=== PATIENT | female | born 1995 | race Caucasian/White ===

== ENCOUNTER 2018-06-10 15:58 | Emergency (ER) | payer SELFPAY ==
[2018-06-10 17:54] LABS: Urine Blood TRACE (NEG); Urine Glucose NEGATIVE (NEG); Urine Protein TRACE (NEG)
--- NOTE | 2018-06-10 17:59 | ER ---
Nurse's Notes [facility] Name: Shalini Yates Age: 22 yrs Sex: Female : 1995 Arrival Date: 06/10/2018 Time: 16:00 Bed 13 Private MD: None, None Diagnosis: Candidiasis of vulva and vagina Presentation: 06/10 16:38 Presenting complaint: Patient states: "I have a yeast infection. I've had it for a week aj1 and it isn't getting better." Patient reports that she has tried taking OTC Monostat, but her symptoms aren't getting any better. Reports vaginal burning and itching, reports she has had yeast infections before and this is what they felt like. Denies vaginal discharge. Transition of care: patient was not received from another setting of care. Onset of symptoms was June 03, 2018. Risk Assessment: Do you want to hurt yourself or someone else? Patient reports no desire to harm self or others. Initial Sepsis Screen: Does the patient meet any 2 criteria? No. Patient's initial sepsis screen is negative. Does the patient have a suspected source of infection? No. Patient's initial sepsis screen is negative. Care prior to arrival: None. 16:38 Method Of Arrival: Ambulatory aj1 16:38 Acuity: BERNARDA 4 aj1 Triage Assessment: 16:40 General: Appears in no apparent distress. comfortable, Behavior is calm, cooperative, aj1 appropriate for age. Pain: Complains of pain in pelvis Pain currently is 3 out of 10 on a pain scale. Quality of pain is described as burning, Pain began one week ago. Neuro: Level of Consciousness is awake, alert, obeys commands. Cardiovascular: Patient's skin is warm and dry. Respiratory: Airway is patent Respiratory effort is even, unlabored, Respiratory pattern is regular, symmetrical. : Reports vaginal burning and itching. MANAGER STYLE: 16:40 LMP N/A - Irregular menses aj1 Historical: - Allergies: 16:40 No Known Allergies; aj1 - Home Meds: 16:40 None [Active]; aj1 - PMHx: 16:40 None; aj1 - PSHx: 16:40 None; aj1 - Immunization history:: Flu vaccine is not up to date. - Social history:: Smoking status: Patient uses tobacco products, a couple cigarettes per day. - Ebola Screening: : Patient denies travel to an Ebola-affected area in the 21 days before illness onset. Screenin:45 Abuse screen: Denies threats or abuse. Denies injuries from another. Nutritional ph screening: No deficits noted. Tuberculosis screening: No symptoms or risk factors identified. Fall Risk None identified. Assessment: 17:45 General: Appears in no apparent distress. uncomfortable, well groomed, Behavior is ph calm, cooperative, appropriate for age, Denies fever. Pain: Complains of pain in groin Quality of pain is described as burning. Neuro: Level of Consciousness is awake, alert, obeys commands, Oriented to person, place, time, situation. Cardiovascular: Capillary refill < 3 seconds in bilateral fingers Patient's skin is warm and dry. Respiratory: Airway is patent Respiratory effort is even, unlabored, Respiratory pattern is regular, symmetrical. GI: No signs and/or symptoms were reported involving the gastrointestinal system. Patient currently denies diarrhea, nausea, vomiting. : Reports discharge, from vagina that is white, vaginal itching, Denies burning with urination, vaginal bleeding. Derm: Skin is intact, is healthy with good turgor, Skin is pink, warm \\T\\ dry. Musculoskeletal: Circulation, motion, and sensation intact. Range of motion: intact in all extremities. Vital Signs: 16:40 BP 125 / 90; Pulse 90; Resp 18; Temp 97.4; Pulse Ox 97% on R/A; Height 5 ft. 0 in. aj1 (152.40 cm); Pain 3/10; 18:30 BP 118 / 82; Pulse 84; Resp 18; Temp 97.8; Pulse Ox 99% on R/A; ph ED Course: 16:00 Patient arrived in ED. sb2 16:00 None, None is Private Physician. sb2 16:39 Triage completed. aj1 16:40 Arm band placed on Patient placed in waiting room, Patient notified of wait time. aj1 17:40 Jess Perry FNP-C [facility]. snw 17:40 Josep Summers MD is Attending Physician. snw 17:40 Danica Krishnamurthy RN is Primary Nurse. ph 17:45 Patient has correct armband on for positive identification. Bed in low position. Call light in reach. Side rails up X 1. 18:45 No provider procedures requiring assistance completed. Patient did not have IV access ph during this emergency room visit. Administered Medications: 18:25 Drug: DiFLUcan 150 mg Route: PO; ph 18:45 Follow up: Response: No adverse reaction ph Outcome: 17:58 Discharge ordered by MD. sands 18:46 Patient left the ED. ph 18:46 Discharged to home ambulatory, with friend. ph 18:46 Condition: good 18:46 Discharge instructions given to patient, Instructed on discharge instructions, follow up and referral plans. medication usage, Demonstrated understanding of instructions, follow-up care, medications, Prescriptions given X 1. Signatures: Ginger Nunes RN RN aj1 Jess Perry, FLOORING MACHINE FEEDER-C FLOORING MACHINE FEEDER-Csnw Danica Krishnamurthy RN RN Suzette Arguello sb2
--- NOTE | 2018-06-10 17:59 | EDPHYS ---
Physician Documentation [facility] Name: Shalini Yates Age: 22 yrs Sex: Female : 1995 Arrival Date: 06/10/2018 Time: 16:00 Bed 13 Private MD: None, None ED Physician Josep Summers HPI: 06/10 18:08 This 22 yrs old Female presents to ER via Ambulatory with complaints of snw Pelvic Problem. 18:08 Onset: The symptoms/episode began/occurred suddenly, last week. Associated signs and snw symptoms: Pertinent positives: vaginal itching, burning, using monistat . The patient has experienced a previous episode. The patient has not recently seen a physician. MOLD CAPPER: 16:40 LMP N/A - Irregular menses aj1 Historical: - Allergies: 16:40 No Known Allergies; aj1 - Home Meds: 16:40 None [Active]; aj1 - PMHx: 16:40 None; aj1 - PSHx: 16:40 None; aj1 - Immunization history:: Flu vaccine is not up to date. - Social history:: Smoking status: Patient uses tobacco products, a couple cigarettes per day. - Ebola Screening: : Patient denies travel to an Ebola-affected area in the 21 days before illness onset. ROS: 18:07 Constitutional: Negative for fever, chills, and weight loss, Eyes: Negative for injury, snw pain, redness, and discharge, ENT: Negative for injury, pain, and discharge, Neck: Negative for injury, pain, and swelling, Cardiovascular: Negative for chest pain, palpitations, and edema, Respiratory: Negative for shortness of breath, cough, wheezing, and pleuritic chest pain, Abdomen/GI: Negative for abdominal pain, nausea, vomiting, diarrhea, and constipation, Back: Negative for injury and pain, MS/Extremity: Negative for injury and deformity, Skin: Negative for injury, rash, and discoloration, Neuro: Negative for headache, weakness, numbness, tingling, and seizure, Psych: Negative for depression, anxiety, suicide ideation, homicidal ideation, and hallucinations. 18:07 : Positive for urinary symptoms, burning with urination, vaginal itching. Exam: 18:03 Constitutional: This is a well developed, well nourished patient who is awake, alert, snw and in no acute distress. Head/Face: Normocephalic, atraumatic. Eyes: Pupils equal round and reactive to light, extra-ocular motions intact. Lids and lashes normal. Conjunctiva and sclera are non-icteric and not injected. Cornea within normal limits. Periorbital areas with no swelling, redness, or edema. ENT: Nares patent. No nasal discharge, no septal abnormalities noted. Tympanic membranes are normal and external auditory canals are clear. Oropharynx with no redness, swelling, or masses, exudates, or evidence of obstruction, uvula midline. Mucous membranes moist. Neck: Trachea midline, no thyromegaly or masses palpated, and no cervical lymphadenopathy. Supple, full range of motion without nuchal rigidity, or vertebral point tenderness. No Meningismus. Chest/axilla: Normal chest wall appearance and motion. Nontender with no deformity. No lesions are appreciated. Cardiovascular: Regular rate and rhythm with a normal S1 and S2. No gallops, murmurs, or rubs. Normal PMI, no JVD. No pulse deficits. Respiratory: Lungs have equal breath sounds bilaterally, clear to auscultation and percussion. No rales, rhonchi or wheezes noted. No increased work of breathing, no retractions or nasal flaring. Abdomen/GI: Soft, non-tender, with normal bowel sounds. No distension or tympany. No guarding or rebound. No evidence of tenderness throughout. Back: No spinal tenderness. No costovertebral tenderness. Full range of motion. Pelvic Exam: Fire-engine red external genitalia. No ulcerations noted Skin: Warm, dry with normal turgor. Normal color with no rashes, no lesions, and no evidence of cellulitis. MS/ Extremity: Pulses equal, no cyanosis. Neurovascular intact. Full, normal range of motion. Neuro: Awake and alert, GCS 15, oriented to person, place, time, and situation. Cranial nerves II-XII grossly intact. Motor strength 5/5 in all extremities. Sensory grossly intact. Cerebellar exam normal. Normal gait. Psych: Awake, alert, with orientation to person, place and time. Behavior, mood, and affect are within normal limits. Vital Signs: 16:40 BP 125 / 90; Pulse 90; Resp 18; Temp 97.4; Pulse Ox 97% on R/A; Height 5 ft. 0 in. aj1 (152.40 cm); Pain 3/10; 18:30 BP 118 / 82; Pulse 84; Resp 18; Temp 97.8; Pulse Ox 99% on R/A; ph MDM: 17:40 Patient medically screened. snw 18:08 Data reviewed: vital signs, nurses notes. Data interpreted: Pulse oximetry: on room air snw is 97 %. Interpretation: normal. Counseling: I had a detailed discussion with the patient and/or guardian regarding: the historical points, exam findings, and any diagnostic results supporting the discharge/admit diagnosis, the need for outpatient follow up, to return to the emergency department if symptoms worsen or persist or if there are any questions or concerns that arise at home. Special discussion: Based on the history and exam findings, there is no indication for further emergent testing or inpatient evaluation. I discussed with the patient/guardian the need to see the primary care provider for further evaluation of the symptoms. 06/10 16:24 Order name: Urine Culture snw 06/10 16:24 Order name: Urine Microscopic Only; Complete Time: 19:51 snw 06/10 16:24 Order name: Urine Test (obtain specimen); Complete Time: 18:14 snw 06/10 17:47 Order name: Urine Dipstick--Ancillary (enter results); Complete Time: 17:56 bd 06/10 17:47 Order name: Urine --Ancillary (enter results); Complete Time: 17:56 bd 06/10 16:24 Order name: Urine Dipstick-Ancillary (obtain specimen); Complete Time: 18:14 snw Administered Medications: 18:25 Drug: DiFLUcan 150 mg Route: PO; ph 18:45 Follow up: Response: No adverse reaction ph Disposition: 06/11 07:04 Co-signature as Attending Physician, Josep Summers MD I agree with the assessment and katerina plan of care. Disposition: 06/10/18 17:58 Discharged to Home. Impression: Candidiasis of vulva and vagina. - Condition is Stable. - Discharge Instructions: How to Take a Sitz Bath, Vaginal Yeast Infection, Adult. - Prescriptions for Diflucan 150 mg Oral Tablet - take 1 tablet by ORAL route one time for 1 day To be taken 06/17/18; 1 tablet. - Medication Reconciliation Form, Thank You Letter, Antibiotic Education, Prescription Opioid Use form. - Follow up: Private Physician; When: 1 - 2 days; Reason: Recheck today's complaints, Continuance of care, Re-evaluation by your physician. Follow up: Emergency Department; When: As needed; Reason: Worsening of condition. Signatures: Dispatcher [employer] Ginger Chopra, RN RN aj1 Josep Summers MD MD cha Therrien, Shelly, TALEND ETL DEVELOPER-C TALEND ETL DEVELOPER-Csnw Danica Krishnamurthy RN RN ph Corrections: (The following items were deleted from the chart) 06/10 18:46 17:58 06/10/2018 17:58 Discharged to Home. Impression: Candidiasis of vulva and vagina. ph Condition is Stable. Forms are Medication Reconciliation Form, Thank You Letter, Antibiotic Education, Prescription Opioid Use. Follow up: Private Physician; When: 1 - 2 days; Reason: Recheck today's complaints, Continuance of care, Re-evaluation by your physician. Follow up: Emergency Department; When: As needed; Reason: Worsening of condition. snw
[2018-06-10] MEDS ORDERED: FLUCONAZOLE 100 MG TAB ONE (18:21)
[2018-06-10 18:41] LABS: Urine Bacteria <20 /HPF (<20); Urine Culture Reflex Order NOT NEEDED; Urine Mucus 1+ /HPF (NONE SEEN)
== END 2018-06-10 18:46 | disposition home or self-care (01) ==
LOC: ER 15:58
DX: B37.3 Candidiasis of vulva and vagina (principal); F17.210 Nicotine dependence, cigarettes, uncomplicated
CPT/HCPCS: 81003; 81015; 81025; 87086; 87088; 99283

== ENCOUNTER 2018-10-13 19:58 | Emergency (ER) | payer SELFPAY ==
--- OUTSIDE RECORDS SUMMARY | 2018-10-13 20:00 | XMS REPORT ---
:1995 [facility] Address [address] [place] [address] Dr. Mcgowan [address] [place] [id number] Care Team Providers Name Role Phone Unavailable Unavailable Unavailable Problems This patient has no known problems. Allergies, Adverse Reactions, Alerts This patient has no known allergies or adverse reactions. Medications This patient has no known medications.
[2018-10-13] MEDS ORDERED: IBUPROFEN 400 MG TAB ONE (20:37)
[2018-10-13 20:54] LABS: Absolute Lymphocytes (CBC) 2.2 K/uL (0.7-4.9); Absolute Monocytes 0.8 K/uL (0.1-1.3); Absolute Neutrophil 7.9 K/uL (1.8-8.0); Basophils % 0.5 % (0-1.3); Eosinophils % 0.8 % (0-4.4); Hematocrit 41.5 % (36.0-45.0); Lymphocytes % 19.7 % (15.3-44.8); MCH 29.5 pg (27.0-35.0); MCV 87.9 fL (80-100); MPV 7.8 fL (7.6-11.3); Monocytes % 7.3 % (3.3-12.3); RBC Red Blood Cell Count 4.72 M/uL (3.86-4.86)
[2018-10-13 21:07] LABS: BUN Blood Urea Nitrogen 8 mg/dL (7-18); Bicarbonate 25 mmol/L (21-32); Glucose Level 99 mg/dL (74-106); Potassium 3.7 mmol/L (3.5-5.1); Sodium Level 140 mmol/L (136-145)
[2018-10-13 21:13] LABS: Urine Blood TRACE (NEG); Urine Glucose NEGATIVE (NEG); Urine Protein NEGATIVE (NEG); Urine pH 6.5 (5.0-7.0)
--- NOTE | 2018-10-13 21:17 | RAD REPORT ---
EXAM DESCRIPTION: RAD - Chest Pa And Lat (2 Views) - 10/13/2018 9:08 pm CLINICAL HISTORY: Cough, chest pain and pressure COMPARISON: None. TECHNIQUE: PA and lateral views of the chest were obtained. FINDINGS: The lungs are clear. Heart size is normal and central vasculature is within normal limit s. No pleural effusion or pneumothorax seen. No acute bony finding noted. No aortic abnormality. IMPRESSION: No acute cardiopulmonary process.
--- NOTE | 2018-10-13 21:36 | EDPHYS ---
Physician Documentation [facility] Name: Shalini Yates Age: 22 yrs Sex: Female : 1995 Arrival Date: 10/13/2018 Time: 20:03 Bed 12 Private MD: ED Physician Kam Garcia HPI: 10/13 20:26 This 22 yrs old Female presents to ER via Ambulatory with complaints of Chest rn Pressure - when taking a breath/laughing. 20:26 The patient or guardian reports chest pain that is located primarily in the anterior rn chest wall, left. The pain does not radiate. The chest pain is described as a pressure, stabbing. Duration: The patient or guardian reports multiple episodes, that are intermittent. Modifying factors: The symptoms are alleviated by nothing. the symptoms are aggravated by cough, deep breath. Severity of pain: At its worst the pain was mild in the emergency department the pain has improved. The patient has not experienced similar symptoms in the past. REports left sided chest pressure/stabbing, began a couple of days ago, reports worse with deep breath and cough, non-productive, no fever, reports long road trip to [place] on , but no leg swelling. No famhx of early cardiac problems. . 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 - Social history:: Smoking status: Patient uses tobacco products, smokes one-half pack cigarettes per day. - Ebola Screening: : No symptoms or risks identified at this time. - Family history:: not pertinent. - Hospitalizations: : No recent hospitalization is reported. ROS: 20:26 Constitutional: Negative for fever, chills, and weight loss, Eyes: Negative for injury, rn pain, redness, and discharge, Neck: Negative for injury, pain, and swelling, Cardiovascular: Negative for palpitations, and edema, Respiratory: Negative for shortness of breath, wheezing, + pleuritic chest pain Abdomen/GI: Negative for abdominal pain, nausea, vomiting, diarrhea, and constipation, MS/Extremity: Negative for injury and deformity, Skin: Negative for injury, rash, and discoloration, Neuro: Negative for headache, weakness, numbness, tingling, and seizure. Exam: 20:26 Constitutional: This is a well developed, well nourished patient who is awake, alert, rn and in no acute distress. Head/Face: Normocephalic, atraumatic. Cardiovascular: tachycardic, normal rhythm with a normal S1 and S2. No gallops, murmurs, or rubs. No JVD. No pulse deficits. Respiratory: Lungs have equal breath sounds bilaterally, clear to auscultation . No rales, rhonchi or wheezes noted. No increased work of breathing, no retractions or nasal flaring. Abdomen/GI: soft, non-tender Skin: Warm, dry MS/ Extremity: Pulses equal, no cyanosis. Neurovascular intact. Full, normal range of motion. Equal circumference. Neuro: Awake and alert, GCS 15, oriented to person, place, time, and situation. Cranial nerves II-XII grossly intact. Motor strength 5/5 in all extremities. Sensory grossly intact. Cerebellar exam normal. Vital Signs: 20:10 BP 136 / 97; Pulse 106; Resp 18; Temp 99.3(O); Pulse Ox 99% on R/A; Weight 72.57 kg; lp1 Height 5 ft. 1 in. (154.94 cm); Pain 5/10; 20:10 Body Mass Index 30.23 (72.57 kg, 154.94 cm) lp1 MDM: 20:17 Patient medically screened. rn 21:34 Differential diagnosis: acute pericarditis, anxiety, chest wall pain, costochondritis, rn pleurisy, pneumonia, pneumothorax, pulmonary embolus. Data reviewed: vital signs, nurses notes, lab test result(s), EKG, radiologic studies, plain films, and as a result, I will discharge patient. Counseling: I had a detailed discussion with the patient and/or guardian regarding: the historical points, exam findings, and any diagnostic results supporting the discharge/admit diagnosis, lab results, radiology results, the need for outpatient follow up, to return to the emergency department if symptoms worsen or persist or if there are any questions or concerns that arise at home. Special discussion: Based on the patient's history, exam, and Dx evaluation, there is no indication for emergent intervention or inpatient Tx. It is understood by the patient/guardian that if the Sx's persist or worsen they need to return immediately for re-evaluation. I discussed with the patient/guardian in detail that at this point there is no indication for admission to the hospital. It is understood, however, that if the symptoms persist or worsen the patient needs to return immediately for re-evaluation. 10/13 20:25 Order name: D-Dimer; Complete Time: 21:33 rn 10/13 20:25 Order name: CBC with Diff; Complete Time: 21: rn 10/13 20:25 Order name: XRAY Chest Pa And Lat (2 Views); Complete Time: 21: rn 10/13 20:25 Order name: Basic Metabolic Panel; Complete Time: 21: 10/13 20:50 Order name: Urine Dipstick--Ancillary (enter results); Complete Time: 21: gm 10/13 20:50 Order name: Urine --Ancillary (enter results); Complete Time: 21:26 gm 10/13 20:25 Order name: EKG; Complete Time: 20:25 10/13 20:25 Order name: EKG - Nurse/Tech; Complete Time: 20:48 rn 10/13 20:25 Order name: IV Start; Complete Time: 20:48 rn 10/13 20:25 Order name: Urine Test (obtain specimen); Complete Time: 20:47 rn 10/13 20:25 Order name: Urine Dipstick-Ancillary (obtain specimen); Complete Time: 20:48 rn Administered Medications: 20:47 Drug: Motrin 800 mg Route: PO; mg2 22:03 Follow up: Response: No adverse reaction; Marked relief of symptoms; Pain is decreased mg2 Disposition: 10/13/18 21:35 Discharged to Home. Impression: Pleurisy. - Condition is Stable. - Discharge Instructions: Pleurisy. - Medication Reconciliation Form, Thank You Letter, Antibiotic Education, Prescription Opioid Use form. - Follow up: Private Physician; When: As needed; Reason: Recheck today's complaints, Re-evaluation by your physician. - Problem is new. - Symptoms have improved. Signatures: Dispatcher [employer] EDMS Kam Garcia MD MD rn Pena, Laura, RN RN lp1 Gardose, Edward, RN RN mg2 Corrections: (The following items were deleted from the chart) 22:04 21:35 10/13/2018 21:35 Discharged to Home. Impression: Pleurisy. Condition is Stable. mg2 Forms are Medication Reconciliation Form, Thank You Letter, Antibiotic Education, Prescription Opioid Use. Follow up: Private Physician; When: As needed; Reason: Recheck today's complaints, Re-evaluation by your physician. Problem is new. Symptoms have improved. rn
--- NOTE | 2018-10-13 21:36 | ER ---
Nurse's Notes [facility] Name: Shalini Yates Age: 22 yrs Sex: Female : 1995 Arrival Date: 10/13/2018 Time: 20:03 Bed 12 Private MD: Diagnosis: Pleurisy Presentation: 10/13 20:08 Presenting complaint: Patient states: Has had cough for a while, states feeling chest lp1 pressure after coughing, radiating to left arm; Denies fever, sore throat; Pain worsens with deep breath. Transition of care: patient was not received from another setting of care. Onset of symptoms was October 13, 2018. Risk Assessment: Do you want to hurt yourself or someone else? Patient reports no desire to harm self or others. Initial Sepsis Screen: Does the patient meet any 2 criteria? No. Patient's initial sepsis screen is negative. Does the patient have a suspected source of infection? No. Patient's initial sepsis screen is negative. Care prior to arrival: None. 20:08 Method Of Arrival: Ambulatory lp1 20:08 Acuity: BERANRDA 3 lp1 CASHIER: 20:10 LMP 10/06/2018 lp1 Historical: - Allergies: 20:09 No Known Allergies; lp1 - Home Meds: 20:09 None [Active]; lp1 - PMHx: 20:09 None; lp1 - PSHx: 20:09 None; lp1 - Immunization history:: Adult Immunizations up to date. - Social history:: Smoking status: Patient uses tobacco products, smokes one-half pack cigarettes per day. - Ebola Screening: : No symptoms or risks identified at this time. - Family history:: not pertinent. - Hospitalizations: : No recent hospitalization is reported. Screenin:49 Abuse screen: Denies threats or abuse. Denies injuries from another. Nutritional mg2 screening: No deficits noted. Tuberculosis screening: No symptoms or risk factors identified. Fall Risk IV access (20 points). Assessment: 20:48 General: Appears in no apparent distress. comfortable, Behavior is calm, cooperative. mg2 Pain: Complains of pain in chest Pain radiates to left arm Pain currently is 3 out of 10 on a pain scale. Quality of pain is described as pressure, Pain began gradually, 1 day ago. Is intermittent, Aggravated by breathing. Neuro: Level of Consciousness is awake, alert, obeys commands, Oriented to person, place, time, situation. Cardiovascular: Capillary refill < 3 seconds Patient's skin is warm and dry. Respiratory: Reports pain with cough pain with respiration Airway is patent Respiratory effort is even, unlabored, Respiratory pattern is regular, symmetrical. GI: No signs and/or symptoms were reported involving the gastrointestinal system. : No signs and/or symptoms were reported regarding the genitourinary system. EENT: No signs and/or symptoms were reported regarding the EENT system. Derm: Skin is intact, is healthy with good turgor, Skin is pink, warm \T\ dry. normal. Musculoskeletal: No signs and/or symptoms reported regarding the musculoskeletal system. 21:30 Reassessment: Patient appears in no apparent distress at this time. Patient and/or mg2 family updated on plan of care and expected duration. Pain level reassessed. Patient is alert, oriented x 3, equal unlabored respirations, skin warm/dry/pink. Vital Signs: 20:10 BP 136 / 97; Pulse 106; Resp 18; Temp 99.3(O); Pulse Ox 99% on R/A; Weight 72.57 kg; lp1 Height 5 ft. 1 in. (154.94 cm); Pain 5/10; 20:10 Body Mass Index 30.23 (72.57 kg, 154.94 cm) lp1 ED Course: 20:03 Patient arrived in ED. am2 20:09 Triage completed. lp1 20:10 Arm band placed on right wrist. lp1 20:10 Patient maintains SpO2 saturation greater than 95% on room air. lp1 20:17 Kam Garcia MD is Attending Physician. rn 20:18 Edward Goodwin RN is Primary Nurse. mg2 20:50 Patient has correct armband on for positive identification. environmental monitoring specialist on. Pulse mg2 ox on. NIBP on. 20:50 No provider procedures requiring assistance completed. Inserted saline lock: 22 gauge mg2 in right antecubital area, using aseptic technique. Blood collected. 21:09 XRAY Chest Pa And Lat (2 Views) In Process Unspecified. EDMS 22:02 IV discontinued, intact, bleeding controlled, No redness/swelling at site. Pressure mg2 dressing applied. Administered Medications: 20:47 Drug: Motrin 800 mg Route: PO; mg2 22:03 Follow up: Response: No adverse reaction; Marked relief of symptoms; Pain is decreased mg2 Outcome: 21:35 Discharge ordered by . rn 22:02 Discharged to home ambulatory, with significant other. mg2 22:02 Condition: stable 22:02 Discharge instructions given to patient, family, Instructed on discharge instructions, follow up and referral plans. Demonstrated understanding of instructions, follow-up care. 22:04 Patient left the ED. mg2 Signatures: Dispatcher [employer] EDMS Kam Garcia MD MD rn Pena, Laura, RN RN lp1 Aurora Leung am2 Edward Goodwin RN RN mg2
--- NOTE | 2018-10-14 11:07 | EKG ---
Test Date: 2018-10-13 Test Time: 20:35:41 Complaint Analyst: MG MEASUREMENT RESULTS: Intervals: Rate: 93 ND: 162 QRSD: 84 QT: 358 QTc: 445 Freeman: P: 71 ND: 162 QRS: 58 T: 42 INTERPRETIVE STATEMENTS: Normal sinus rhythm Normal ECG No previous ECG available for comparison Electronically Signed On 10-14-18 11:05:55 HUMIDIFIER ATTENDANT by Nash Henry
== END 2018-10-13 22:04 | disposition home or self-care (01) ==
LOC: ER 19:58
DX: R09.1 Pleurisy (principal); F17.210 Nicotine dependence, cigarettes, uncomplicated
CPT/HCPCS: 36415; 71046; 80048; 81003; 81025; 85025; 85379; 93005; 99285

== ENCOUNTER 2019-07-29 17:33 | Emergency (ER) | payer OTHER, SELFPAY ==
[2019-07-29] MEDS ORDERED: LIDOCAINE 1% MPF 5 ML VIAL ONE (18:06)
[2019-07-29] MEDS ORDERED: AMOX/K CLAV 875 MG TAB ONE (18:07)
--- NOTE | 2019-07-29 19:01 | EDPHYS ---
Physician Documentation [facility] Name: Shalini Yates Age: 23 yrs Sex: Female : 1995 Arrival Date: 07/29/2019 Time: 17:36 Bed 18 Private MD: ED Physician Kam Garcia HPI: 07/29 19:06 This 23 yrs old Female presents to ER via Ambulatory with complaints of snw Abscess, 34 wks . 19:06 The patient presents with an abscess of the right labia majora. Description: The snw affected area is small, well demarcated, swollen. Onset: The symptoms/episode began/occurred suddenly, 1 week(s) ago. Possible cause(s): unknown. Associated signs and symptoms: Pertinent positives: tenderness. Modifying factors: the symptoms are alleviated by nothing. Severity of symptoms: At their worst the symptoms were mild. It is unknown whether or not the patient has had similar symptoms in the past. It is unknown whether or not the patient has recently seen a physician. Historical: - Allergies: 17:44 Pertussis Vaccines; hb - Home Meds: 17:44 Vitamin Oral tab 1 tab once daily [Active]; hb - PMHx: 17:44 None; hb - PSHx: 17:44 None; hb - Immunization history:: Adult Immunizations up to date. - Social history:: Smoking status: Patient uses tobacco products, denies chronic smoking, but will smoke occasionally. - Ebola Screening: : No symptoms or risks identified at this time. ROS: 19:06 Constitutional: Negative for fever, chills, and weight loss, Eyes: Negative for injury, snw pain, redness, and discharge, ENT: Negative for injury, pain, and discharge, Neck: Negative for injury, pain, and swelling, Cardiovascular: Negative for chest pain, palpitations, and edema, Respiratory: Negative for shortness of breath, cough, wheezing, and pleuritic chest pain, Abdomen/GI: Negative for abdominal pain, nausea, vomiting, diarrhea, and constipation, Back: Negative for injury and pain, MS/Extremity: Negative for injury and deformity, Skin: Negative for injury, rash, and discoloration, Neuro: Negative for headache, weakness, numbness, tingling, and seizure. 19:06 : Positive for boil or something at groin. Exam: 19:02 Constitutional: This is a well developed, well nourished patient who is awake, alert, snw and in no acute distress. Head/Face: Normocephalic, atraumatic. Eyes: Pupils equal round and reactive to light, extra-ocular motions intact. Lids and lashes normal. Conjunctiva and sclera are non-icteric and not injected. Cornea within normal limits. Periorbital areas with no swelling, redness, or edema. ENT: Nares patent. No nasal discharge, no septal abnormalities noted. Tympanic membranes are normal and external auditory canals are clear. Oropharynx with no redness, swelling, or masses, exudates, or evidence of obstruction, uvula midline. Mucous membranes moist. Neck: Trachea midline, no thyromegaly or masses palpated, and no cervical lymphadenopathy. Supple, full range of motion without nuchal rigidity, or vertebral point tenderness. No Meningismus. Chest/axilla: Normal chest wall appearance and motion. Nontender with no deformity. No lesions are appreciated. Cardiovascular: Regular rate and rhythm with a normal S1 and S2. No gallops, murmurs, or rubs. Normal PMI, no JVD. No pulse deficits. Respiratory: Lungs have equal breath sounds bilaterally, clear to auscultation and percussion. No rales, rhonchi or wheezes noted. No increased work of breathing, no retractions or nasal flaring. Back: No spinal tenderness. No costovertebral tenderness. Full range of motion. Skin: Warm, dry with normal turgor. Normal color with no rashes, no lesions, and no evidence of cellulitis. MS/ Extremity: Pulses equal, no cyanosis. Neurovascular intact. Full, normal range of motion. Neuro: Awake and alert, GCS 15, oriented to person, place, time, and situation. Cranial nerves II-XII grossly intact. Motor strength 5/5 in all extremities. Sensory grossly intact. Cerebellar exam normal. Normal gait. 19:02 Pelvic Exam: Normal external genitalia. cutaneous abscess to right exterior labia majora 19:02 Abdomen/GI: Inspection: gravid appearance, is noted, Bowel sounds: normal, in all quadrants. Vital Signs: 17:44 BP 128 / 83; Pulse 97; Resp 20; Temp 97.8; Pulse Ox 100% on R/A; Weight 81.65 kg; hb Height 5 ft. (152.40 cm); Pain 5/10; 17:44 Body Mass Index 35.15 (81.65 kg, 152.40 cm) hb Procedures: 19:04 I \T\ D: Incision and drainage was performed for an abscess of the right external labia snw majora Prepped with Betadine, Anesthetized with 4 ml's 1% Lidocaine. Incised with #11 blade. Drained large amount purulent fluid. Loculations removed. the patient tolerated the procedure well. MDM: 17:52 Patient medically screened. snw 19:05 Data reviewed: vital signs, nurses notes. Data interpreted: Pulse oximetry: on room air snw is 100 %. Interpretation: normal. Counseling: I had a detailed discussion with the patient and/or guardian regarding: the historical points, exam findings, and any diagnostic results supporting the discharge/admit diagnosis, the presence of at least one elevated blood pressure reading (>120/80) during this emergency department visit, the need for outpatient follow up, for definitive care, to return to the emergency department if symptoms worsen or persist or if there are any questions or concerns that arise at home. Special discussion: Based on the history and exam findings, there is no indication for further emergent testing or inpatient evaluation. I discussed with the patient/guardian the need to see the OB Gyne specialist for further evaluation of the symptoms. I discussed with the patient/guardian the need to see the primary care provider for further evaluation of the symptoms. 07/29 18:00 Order name: I\T\D Setup; Complete Time: 18:10 snw 07/29 18:00 Order name: [facility]. Order: 11 blade please; Complete Time: 18:09 snw Administered Medications: 18:10 Drug: Augmentin 875 mg Route: PO; sv 19:05 Follow up: Response: No adverse reaction sv 18:45 Drug: Lidocaine (1 %) 1 vials {Note: given to Jess BRANCH CONTROLLER for procedure.} Volume: 5 ml; sv Route: Infiltration; Disposition: 07/29/19 19:00 Discharged to Home. Impression: Cutaneous abscess of groin. - Condition is Stable. - Discharge Instructions: Skin Abscess, Incision and Drainage, How to Take a Sitz Bath. - Prescriptions for Augmentin 875- 125 mg Oral Tablet - take 1 tablet by ORAL route every 12 hours for 10 days; 20 tablet. - Medication Reconciliation Form, Thank You Letter, Antibiotic Education, Prescription Opioid Use, Work release form, Family Work Release form. - Follow up: Private Physician; When: 2 - 3 days; Reason: Recheck today's complaints, Continuance of care, Re-evaluation by your physician. Follow up: Emergency Department; When: As needed; Reason: Worsening of condition. Addendum: 08/01/2019 07:00 Co-signature as Attending Physician, Kam Garcia MD. r n Signatures: Kim Dial RN RN Jess Omer, CONTRACT OFFICER-C CONTRACT OFFICER-Csnw Kam Garcia MD MD rn Baxter, Heather RN RN Corrections: (The following items were deleted from the chart) 07/29 19:14 19:00 07/29/2019 19:00 Discharged to Home. Impression: Cutaneous abscess of groin. sv Condition is Stable. Forms are Medication Reconciliation Form, Thank You Letter, Antibiotic Education, Prescription Opioid Use. Follow up: Private Physician; When: 2 - 3 days; Reason: Recheck today's complaints, Continuance of care, Re-evaluation by your physician. Follow up: Emergency Department; When: As needed; Reason: Worsening of condition. snw
--- NOTE | 2019-07-29 19:01 | ER ---
Nurse's Notes [facility] Name: Shalini Yates Age: 23 yrs Sex: Female : 1995 Arrival Date: 07/29/2019 Time: 17:36 Bed 18 Private MD: Diagnosis: Cutaneous abscess of groin Presentation: 07/29 17:43 Presenting complaint: Abscess on groin x 1 week. Transition of care: patient was not hb received from another setting of care. Onset of symptoms was July 22, 2019. Risk Assessment: Do you want to hurt yourself or someone else? Patient reports no desire to harm self or others. Initial Sepsis Screen: Does the patient meet any 2 criteria? No. Patient's initial sepsis screen is negative. Does the patient have a suspected source of infection? No. Patient's initial sepsis screen is negative. Care prior to arrival: None. 17:43 Method Of Arrival: Ambulatory hb 17:43 Acuity: BERNARDA 4 hb Historical: - Allergies: 17:44 Pertussis Vaccines; hb - Home Meds: 17:44 Vitamin Oral tab 1 tab once daily [Active]; hb - PMHx: 17:44 None; hb - PSHx: 17:44 None; hb - Immunization history:: Adult Immunizations up to date. - Social history:: Smoking status: Patient uses tobacco products, denies chronic smoking, but will smoke occasionally. - Ebola Screening: : No symptoms or risks identified at this time. Screenin:10 Abuse screen: Denies threats or abuse. Denies injuries from another. Nutritional sv screening: No deficits noted. Tuberculosis screening: No symptoms or risk factors identified. Fall Risk None identified. Assessment: 18:05 General: Appears in no apparent distress. uncomfortable, well developed, Behavior is sv calm, cooperative, appropriate for age. Pain: Complains of pain in pelvis Pain currently is 5 out of 10 on a pain scale. Neuro: Level of Consciousness is awake, alert, obeys commands, Oriented to person, place, time, situation, Gait is steady. Respiratory: Respiratory effort is even, unlabored, Respiratory pattern is regular, symmetrical. Derm: Skin is pink, warm \T\ dry. Abscess located on right labia majora. 19:13 Reassessment: Patient appears in no apparent distress at this time. No changes from sv previously documented assessment. Patient and/or family updated on plan of care and expected duration. Pain level reassessed. Patient is alert, oriented x 3, equal unlabored respirations, skin warm/dry/pink. Vital Signs: 17:44 BP 128 / 83; Pulse 97; Resp 20; Temp 97.8; Pulse Ox 100% on R/A; Weight 81.65 kg; hb Height 5 ft. (152.40 cm); Pain 5/10; 17:44 Body Mass Index 35.15 (81.65 kg, 152.40 cm) hb ED Course: 17:36 Patient arrived in ED. mr 17:44 Triage completed. hb 17:44 Arm band placed on. hb 17:51 Kim Dial, JUANCARLOS is Primary Nurse. sv 17:51 Jess Perry FNP-C is PHCP. snw 17:52 Kam Garcia MD is Attending Physician. snw 18:10 Patient has correct armband on for positive identification. Placed in gown. Bed in low sv position. Call light in reach. Adult w/ patient. Door closed. 19:14 No provider procedures requiring assistance completed. Patient did not have IV access sv during this emergency room visit. Administered Medications: 18:10 Drug: Augmentin 875 mg Route: PO; sv 19:05 Follow up: Response: No adverse reaction sv 18:45 Drug: Lidocaine (1 %) 1 vials {Note: given to Jess PLAN CHECKER for procedure.} Volume: 5 ml; sv Route: Infiltration; Outcome: 19:00 Discharge ordered by MD. snw 19:14 Discharged to home ambulatory, with significant other. sv 19:14 Condition: stable 19:14 Discharge instructions given to patient, Instructed on discharge instructions, follow up and referral plans. medication usage, wound care, Demonstrated understanding of instructions, follow-up care, medications, wound care, Prescriptions given X 1. 19:14 Patient left the ED. sv Signatures: Kim Dial RN RN Jess Perry FNP-C FNP-Csnw Evy MoralezBárbara RN RN Corrections: (The following items were deleted from the chart) 19:14 18:05 Derm: Skin is pink, warm \T\ dry. sv sv
[2019-07-29 19:19] VITALS: BP 128/83; TEMP 97.8; O2SAT 100
== END 2019-07-29 19:14 | disposition home or self-care (01) ==
LOC: ER 17:33
PROC: 0J9C0ZZ Drainage of Pelvic Region Subcutaneous Tissue and Fascia, Open Approach (ICD-10-PCS; principal; 2019-07-29)
DX: O23.593 Infection of other part of genital tract in pregnancy, third trimester (principal); O99.333 Smoking (tobacco) complicating pregnancy, third trimester; Z3A.34 34 weeks gestation of pregnancy; Z88.7 Allergy status to serum and vaccine
CPT/HCPCS: 99283

== ENCOUNTER 2024-09-30 00:07 | Emergency (ER) | payer OTHER, SELFPAY ==
--- OUTSIDE RECORDS SUMMARY | 2024-09-30 00:12 | XMS REPORT | Continuity of Care Document ---
Author Name Unknown Address [address] [facility] [place] [address] [facility] Address [address] [facility] [address] [place] [address] Care Team Providers Care Ore Digger Name Role Phone Pcp, Patient Does Not Have A Primary Care Physic domingo Gaston Britton Attending Clinician Unavailable SANAZ CLOUD Attending Clinician Unavailab SANAZ Lipscomb Attending Clinician Unavailab Sanaz Lipscomb DO Attending Clinician [phone] Sarahi Grove Attending Clinician [phone] SARAHI RAYMUNDO Attending Clinician Unavailab SARAHI Adam Attending Clinician Unavailab ariadna Grant MD, Shola Dunbar Attending Clinician [phone] DAYANA GUZMAN Attending Clinician Unavailable Thomas Dayana BURNETTE Attending Clinician [phone] Nurse, Norman [facility] Attending Clini luz maria Unavailable WINTER HAN Attending Clinician Unavail able Guille WHWinter BURNETTE Attending Clinician + AKUA ELLISON Attending Clinician Unavailable WILLIAM MARCOS Attending Clinician UnavailWILLIAM Aleman Attending Clinician Unavailkristy spencer Doctor Unassigned, Meeker Attending Clinician U navailable Pcp, Patient Does Not Have A Attending Clinician ALYCIA MUHAMMAD Attending Clinician Unavaila SLICK Miller Attending Clinician Unavailab le QURESHICONSTANTINEYA S Attending Clinician Unavailable Qureshi PAC, Andrew S Attending Clinician [phone] NAOMIE CLOUD Attending Clinician Unavaildelbert Uriostegui RN, Sun Keenan Attending Clinician Unav ailable Patel Carreon DO Attending Clinician SOCO CRUZ Attending Clinician Unavailable Pob[facility], [facility] Attending Clinician Unav ailable Rosalba Freitas Attending Clinician [phone] Slick Newman Attending Clinician [phone] Shola Grant MD Attending Clinician [phone] SHOLA GRANT Attending Clinician Unavailable 1, [facility] Attending Clinician Unavailable Soco Cruz PA-C Attending Clinician [phone] Visit, Adc Nurse Attending Clinician Unavailable Nurse, [facility] Attending Clinician Un available Physician, No Primary or Family Admitting Clinic domingo Unavailable Payers Payer Name Policy Type Policy Number Effective Date Expirati on Date Source [employer] [place] [facility] [id number] 00:00:00 [employer] [id number] 2022 00:00:00 Problems Condition Name Condition Details Condition Category Status Onset Date Resolution Date Last Treatment Date Treating Clinician Comments Source Elevated blood pressure reading without diagnosis of hypertensi on Elevated blood pressure reading without diagnosis of hypertensi on Disease Active 3-04 00:00: 00 [facility] Screen for sexually transmitte d diseases Screen for sexually transmitte d diseases Disease Active - 00:00: 00 [facility] UTI symptoms UTI symptoms Disease Active 6 00:00: 00 [facility] Other general counseling and advice for contracept vandana management Other general counseling and advice for contracept vandana management Disease Active 6 00:00: 00 [facility] S/P tubal ligation S/P tubal ligation Disease Active 2018-10 029 00:00: 00 [facility] Influenza vaccinatio n declined Influenza vaccinatio n declined Disease Active 2 00:00: 00 [facility] Vaginal odor Vaginal odor Disease Active 2017-10 2 00:00: 00 [facility] BMI 39.0-39.9, adult BMI 39.0-39.9, adult Disease Resolve d 03-30 00:00: 00 2024-06-05 00:00:00 2024-06-05 09:48:48 [facility] Multiparit y Multiparit y Disease Resolve d 2 00:00: 00 2021-12-29 00:00:00 2021-12-29 14:41:53 [facility] Oligohydra mnios Oligohydra mnios Disease Resolve d 2018-10 029 00:00: 00 2020-11-17 00:00:00 2020-11-17 11:43:02 [facility] Liveborn infant, of singh , born in hospital by delivery Liveborn , of singh , born in hospital by delivery Disease Resolve d 2018-10 0 00:00: 00 2020-11-17 00:00:00 2020-11-17 11:43:12 [facility] Diet controlled gestationa l diabetes mellitus (GDM) in third trimester Diet controlled gestationa l diabetes mellitus (GDM) in third trimester Disease Resolve d 07-24 00:00: 00 2020-11-17 00:00:00 2020-11-17 11:43:17 [facility] Request for sterilizat ion Request for sterilizat ion Disease Resolve d 9 00:00: 00 2020-11-17 00:00:00 2020-11-17 11:42:59 [facility] History of miscarriag e History of miscarriag e Disease Resolve d 2018-0 3-27 00:00: 00 2020-11-17 00:00:00 2020-11-17 11:43:15 [facility] 38 weeks gestation of 38 weeks gestation of Disease Resolve d 2018-10 0-29 00:00: 00 2019-09-28 00:00:00 2019-09-28 14:16:09 [facility] Breech presentati on on examinatio n, fetus 1 Breech presentati on on examinatio n, fetus 1 Disease Resolve d 2018-0 9-28 00:00: 00 2019-09-28 00:00:00 2019-09-28 14:16:07 [facility] Maternal obesity affecting , antepartum Maternal obesity affecting , antepartum Disease Resolve d 0 9-27 00:00: 00 2019-09-28 00:00:00 2019-09-28 14:16:02 [facility] Supervisio n of high-risk Supervisio n of high-risk Disease Resolve d 2018-0 3-27 00:00: 00 2019-09-28 00:00:00 2019-09-28 14:15:55 [facility] Obesity affecting in first trimester Obesity affecting in first trimester Disease Resolve d 2018-0 2-27 00:00: 00 2019-09-28 00:00:00 2019-09-28 14:15:48 [facility] Fever Fever Disease Resolve d 2018- 0-03 00:00: 00 2019-08-25 00:00:00 2019-08-25 10:52:17 [facility] tachycardi a affecting management of mother tachycardi a affecting management of mother Disease Resolve d 2018- 0-03 00:00: 00 2019-08-25 00:00:00 2019-08-25 10:52:15 [facility] 34 weeks gestation of 34 weeks gestation of Disease Resolve d 2018-0 9-27 00:00: 00 2019-08-25 00:00:00 2019-08-25 10:52:06 [facility] premature rupture of membranes (PPROM) with onset of labor after 24 hours of rupture in third trimester, antepartum premature rupture of membranes (PPROM) with onset of labor after 24 hours of rupture in third trimester, antepartum Disease Resolve d 07-24 00:00: 00 2019-08-25 00:00:00 2019-08-25 10:52:33 [facility] Screening for venereal disease Screening for venereal disease Disease Resolve d 2017-10 00:00: 00 2018-12-24 00:00:00 2018-12-24 14:57:44 [facility] Screening examinatio n for STD (sexually transmitte d disease) Screening examinatio n for STD (sexually transmitte d disease) Disease Resolve d 04-02 00:00: 00 2018-12-24 00:00:00 2018-12-24 14:57:51 [facility] BMI 28.0-28.9, adult BMI 28.0-28.9, adult Disease Resolve d 04-02 00:00: 00 2018-12-24 00:00:00 2018-12-24 14:57:57 [facility] Tobacco use disorder Tobacco use disorder Disease Resolve d 12-14 00:00: 00 2018-12-24 00:00:00 2018-12-24 14:57:55 [facility] Breakthrou gh bleeding on Nexplanon Breakthrou gh bleeding on Nexplanon Disease Resolve d 2016-10 00:00: 00 2018-08-25 00:00:00 2018-08-25 13:26:37 [facility] Nexplanon removal Nexplanon removal Disease Resolve d 04-19 00:00: 00 2018-08-25 00:00:00 2018-08-25 13:25:40 [facility] Chlamydia Chlamydia Disease Resolve d 04-03 00:00: 00 2018-08-25 00:00:00 2018-08-25 13:25:43 [facility] Nausea and vomiting during prior to 22 weeks gestation Nausea and vomiting during prior to 22 weeks gestation Disease Resolve d 2015-0 3-08 00:00: 00 2017-04-02 00:00:00 2017-04-02 15:03:23 [facility] Nausea and vomiting during prior to 22 weeks gestation Nausea and vomiting during prior to 22 weeks gestation Disease Resolve d 2015-0 3-08 00:00: 00 2017-04-02 00:00:00 2017-04-02 15:03:23 [facility] Urinary tract infection without hematuria, site unspecifie d Urinary tract infection without hematuria, site unspecifie d Disease Resolve d 0 2-24 00:00: 00 2017-04-02 00:00:00 2022-05-13 00:39:39 [facility] Obesity affecting , antepartum , first trimester Obesity affecting , antepartum , first trimester Disease Resolve d 2-17 00:00: 00 2017-04-02 00:00:00 2017-04-02 15:03:21 [facility] Supervisio n of high-risk with insufficie nt care, second trimester Supervisio n of high-risk with insufficie nt care, second trimester Disease Resolve d 17 00:00: 00 2017-04-02 00:00:00 2017-04-02 15:03:19 [facility] Back pain affecting Back pain affecting Disease Resolve d 217 00:00: 00 2017-04-02 00:00:00 2017-04-02 15:03:24 [facility] 21 weeks gestation of 21 weeks gestation of Disease Resolve d 0 3-08 00:00: 00 2016-01-12 00:00:00 2016-01-12 19:04:10 [facility] Diarrhea Diarrhea Disease Resolve d 3-08 00:00: 00 2016-01-12 00:00:00 2016-01-12 19:10:00 [facility] High risk , antepartum High risk , antepartum Disease Resolve d 0 2-17 00:00: 00 2015-12-14 00:00:00 2015-12-14 10:28:20 [facility] Allergies, Adverse Reactions, Alerts Allergy Name Allergy Type Status Severity Reaction(s) Onset Date Inactive Date Treating Clinician Comments Source No Known Allergie s DA Active U 2023-10 00:00: 00 [facility]3] Pertussi s Vaccines Propensi ty to adverse reaction s to drug Active Anaphylaxis 12-14 00:00: 00 As a child [facility] PERTUSSI S VACCINES Drug Class Active Anaphylaxis 12-14 00:00: 00 [facility] Pertussi s Vaccines Propensi ty to adverse reaction s to drug Active Anaphylaxis 12-14 00:00: 00 As a child [facility] Social History Social Habit Start Date Stop Date Quantity Comments [facility] intake 2024-09-02 00:00:00 2024-09-02 00:00:00 Current drinker of alcohol (finding) [facility] Cigarettes smoked current (pack per day) - Reported 2024-06-05 00:00:00 2024-06-05 00:00:00 [facility] Tobacco use and exposure 2024-06-05 00:00:00 2024-06-05 00:00:00 Smokeless tobacco non-user [facility] History of Social function 2024-06-05 00:00:00 2024-06-05 00:00:00 [facility] Cigarette pack-years 2024-06-05 00:00:00 2024-06-05 00:00:00 [facility] Alcohol intake 2023-11-19 00:00:00 2023-11-19 00:00:00 Current drinker of alcohol (finding) [facility] Exposure to SARS-CoV-2 (event) 2023-01-14 00:00:00 2023-01-24 12:38:00 Not sure [facility] History SDOH Alcohol Frequency 2020-11-17 00:00:00 2020-11-17 00:00:00 3 [facility] History SDOH Alcohol Std Drinks 2020-11-17 00:00:00 2020-11-17 00:00:00 4 [facility] History SDOH Alcohol Binge 2020-11-17 00:00:00 2020-11-17 00:00:00 99 [facility] History of tobacco use 2013-12-24 00:00:00 2018-11-25 00:00:00 Cigarette Smoker [facility] Alcohol Comment 2017-04-02 00:00:00 2017-04-02 00:00:00 social [facility] Sex assigned at 1995 00:00:00 1995 00:00:00 [facility] Smoking Status Start Date Stop Date Source Smokes tobacco daily 2024-06-05 00:00:00 [facility] Medications Ordered Medication Name Filled Medication Name Start Date Stop Date Current Medication? Ordering Clinician Indication Dosage Frequency Signature (SIG) Comments Components Source acetaminoph en (TYLENOL) tablet 1,000 mg 2023-10 07:00: 00 09-03 06:47 :00 No 1000mg 1,000 mg, Oral, ONCE, 1 dose, On Sat09/03/24 at 0100, [facility] benzonatate (TESSALON PERLES) capsule 100 mg 2023-10 06:45: 00 09-03 06:44 :00 No 100mg 100 mg, Oral, ONCE, 1 dose, On Sat09/03/24 at 0045, [facility] ondansetron (ZOFRAN-ODT ) disintegrat ing tablet 4 mg 2023-10 06:30: 00 09-03 05:36 :00 No 4mg 4 mg, Oral, ONCE, 1 dose, On Sat09/03/24 at 0030, Routine [facility] codeine-gua ifenesin (ROBITUSSIN AC) 10-100 mg/5 mL oral solution 10 mL 2023-10 05:45: 00 09-03 05:56 :00 No 10mL 10 mL, Oral, ONCE, 1 dose, On Sat09/02/24 at 2345, [facility] ondansetron 4 mg disintegrat ing tablet 2023-10 00:00: 00 09-03 00:00 :00 Yes [id number] 4mg Take 1 tablet by mouth every 8 (eight) hours as needed for Nausea and Vomiting (N/V). [facility] benzonatate 100 mg capsule 2023-10 00:00: 00 09-03 00:00 :00 Yes [id number] 100mg Take 1 capsule by mouth 3 (three) times daily as needed for Cough. [facility] bromphenira mine-pseudo ephedrine-D M (BROMFED DM) 2-30-10 mg/5 mL syrup 2023-10 00:00: 00 09-03 00:00 :00 Yes [id number] 5mL Take 5 mL by mouth 4 (four) times daily as needed for Cough or Cold symptoms. [facility] metroNIDAZO LE 0.75 % (37.5mg/5 gram) vaginal gel 2023-10 0 00:00: 00 Yes [id number] 1{appli cator} Insert 1 Applicator into vagina at bedtime. [facility] metroNIDAZO LE 0.75 % (37.5mg/5 gram) vaginal gel 2023-10 0-04 00:00: 00 08-03 00:00 :00 No [id number] 1{appli cator} Insert 1 Applicator into vagina at bedtime. [facility] metroNIDAZO LE 500 mg tablet 8-09 00:00: 00 07-31 00:00 :00 No [id number] 500mg Take 1 tablet by mouth every 12 (twelve) hours. [facility] metroNIDAZO LE 500 mg tablet 4-12 00:00: 00 06-05 00:00 :00 No [id number] 500mg Take 1 tablet by mouth in the morning and 1 tablet in the evening. [facility] metroNIDAZO LE 500 mg tablet 2022-0 3-30 00:00: 00 02-01 04:59 :00 No [id number] 500mg Take 1 tablet by mouth every 12 (twelve) hours for 7 days. [facility] metroNIDAZO LE 500 mg tablet 3-07 00:00: 00 02-04 00:00 :00 No [id number] 500mg Take 1 tablet by mouth 2 (two) times daily. [facility] amoxicillin -clavulanat e 875-125 mg per tablet 2020-10 00:00: 00 12-29 00:00 :00 No [id number] 1{tbl} Take 1 tablet by mouth every 12 (twelve) hours. [facility] ondansetron (ZOFRAN ODT) 4 mg disintegrat ing tablet 2020-10 00:00: 00 12-29 00:00 :00 No [id number] 4mg Take 1 tablet by mouth every 8 (eight) hours as needed for Nausea and Vomiting (N/V). [facility] metroNIDAZO LE (FLAGYL) 500 mg tablet 04-26 00:00: 00 12-29 00:00 :00 No [id number] 500mg Take 1 tablet by mouth 2 (two) times daily. [facility] Immunizations Ordered Immunization Name Filled Immunization Name Date Status Comments Source HPV9 2024-02-05 00:00:00 Completed [facility] HPV9 2024-02-05 00:00:00 Completed [facility] HPV9 2024-02-05 00:00:00 Completed [facility] Influenza Virus Vaccine Quad .5 mL IM 6+ MO (FLUZONE/FLULAVAL/FL UARIX) 2019-02-23 00:00:00 Completed [facility] Influenza Virus Vaccine Quad .5 mL IM 6+ MO (FLUZONE/FLULAVAL/FL UARIX) 2019-02-23 00:00:00 Completed [facility] Influenza Virus Vaccine Quad .5 mL IM 6+ MO (FLUZONE/FLULAVAL/FL UARIX) 2019-02-23 00:00:00 Completed [facility] Influenza Virus Vaccine Quad .5 mL IM 6+ MO 2019-02-23 00:00:00 Completed [facility] Influenza Virus Vaccine Quad .5 mL IM 6+ MO 2019-02-23 00:00:00 Completed [facility] Influenza Virus Vaccine Quad .5 mL IM 6+ MO 2019-02-23 00:00:00 Completed [facility] Influenza Virus Vaccine Quad .5 mL IM 6+ MO 2019-02-23 00:00:00 Completed [facility] TD, NOS 2012-06-24 00:00:00 Completed TD, NOS 2012-06-24 00:00:00 Completed TD, NOS 2012-06-24 00:00:00 Completed Td 2012-06-24 00:00:00 Completed [facility] TD, NOS 2012-06-24 00:00:00 Completed [facility] TD, NOS 2012-06-24 00:00:00 Completed [facility] TD, NOS 2012-06-24 00:00:00 Completed [facility] Meningococcal Polysaccharide (groups A, C, Y and W-135) conjugate vaccine (MCV4P) 2010-05-31 00:00:00 Completed Tetanus/Diptheria 2010-05-31 00:00:00 Completed Meningococcal Polysaccharide (groups A, C, Y and W-135) conjugate vaccine (MCV4P) 2010-05-31 00:00:00 Completed Tetanus/Diptheria 2010-05-31 00:00:00 Completed Meningococcal Polysaccharide (groups A, C, Y and W-135) conjugate vaccine (MCV4P) 2010-05-31 00:00:00 Completed Tetanus/Diptheria 2010-05-31 00:00:00 Completed HEPATITIS A 2006-11-04 00:00:00 Completed HEPATITIS A 2006-11-04 00:00:00 Completed HEPATITIS A 2006-11-04 00:00:00 Completed MMR 2001-06-09 00:00:00 Completed MMR 2001-06-09 00:00:00 Completed MMR 2001-06-09 00:00:00 Completed DT/Tetanus 2001-02-10 00:00:00 Completed DT/Tetanus 2001-02-10 00:00:00 Completed DT/Tetanus 2001-02-10 00:00:00 Completed DT/Tetanus 2000-11-19 00:00:00 Completed MMR 2000-11-19 00:00:00 Completed IPV 2000-11-19 00:00:00 Completed DT/Tetanus 2000-11-19 00:00:00 Completed MMR 2000-11-19 00:00:00 Completed IPV 2000-11-19 00:00:00 Completed DT/Tetanus 2000-11-19 00:00:00 Completed MMR 2000-11-19 00:00:00 Completed IPV 2000-11-19 00:00:00 Completed DTaP, Unspecified Formulation 1998-04-19 00:00:00 Completed Haemophilus influenzae type b vaccine, conjugate unspecified formulation 1998-04-19 00:00:00 Completed MMR 1998-04-19 00:00:00 Completed DTaP, Unspecified Formulation 1998-04-19 00:00:00 Completed Haemophilus influenzae type b vaccine, conjugate unspecified formulation 1998-04-19 00:00:00 Completed MMR 1998-04-19 00:00:00 Completed DTaP, Unspecified Formulation 1998-04-19 00:00:00 Completed Haemophilus influenzae type b vaccine, conjugate unspecified formulation 1998-04-19 00:00:00 Completed MMR 1998-04-19 00:00:00 Completed DT/Tetanus 1997-08-18 00:00:00 Completed [facility] DT/Tetanus 1997-08-18 00:00:00 Completed [facility] DT/Tetanus 1997-08-18 00:00:00 Completed [facility] Hep B, Adol or Pedi Dosage 1997-07-20 00:00:00 Completed Haemophilus influenzae type b vaccine, conjugate unspecified formulation 1997-07-20 00:00:00 Completed Poliovirus, Live, Oral, Trivalent 1997-07-20 00:00:00 Completed Hep B, Adol or Pedi Dosage 1997-07-20 00:00:00 Completed Haemophilus influenzae type b vaccine, conjugate unspecified formulation 1997-07-20 00:00:00 Completed Poliovirus, Live, Oral, Trivalent 1997-07-20 00:00:00 Completed Hep B, Adol or Pedi Dosage 1997-07-20 00:00:00 Completed Haemophilus influenzae type b vaccine, conjugate unspecified formulation 1997-07-20 00:00:00 Completed Poliovirus, Live, Oral, Trivalent 1997-07-20 00:00:00 Completed DT/Tetanus 1997-04-12 00:00:00 Completed Haemophilus influenzae type b vaccine, conjugate unspecified formulation 1997-04-12 00:00:00 Completed Poliovirus, Live, Oral, Trivalent 1997-04-12 00:00:00 Completed DT/Tetanus 1997-04-12 00:00:00 Completed Haemophilus influenzae type b vaccine, conjugate unspecified formulation 1997-04-12 00:00:00 Completed Poliovirus, Live, Oral, Trivalent 1997-04-12 00:00:00 Completed DT/Tetanus 1997-04-12 00:00:00 Completed Haemophilus influenzae type b vaccine, conjugate unspecified formulation 1997-04-12 00:00:00 Completed Poliovirus, Live, Oral, Trivalent 1997-04-12 00:00:00 Completed Poliovirus, Live, Oral, Trivalent 1997-03-14 00:00:00 Completed Poliovirus, Live, Oral, Trivalent 1997-03-14 00:00:00 Completed Poliovirus, Live, Oral, Trivalent 1997-03-14 00:00:00 Completed DPT/HIB 1997-01-12 00:00:00 Completed Hep B, Adol or Pedi Dosage 1997-01-12 00:00:00 Completed Poliovirus, Live, Oral, Trivalent 1997-01-12 00:00:00 Completed DPT/HIB 1997-01-12 00:00:00 Completed Hep B, Adol or Pedi Dosage 1997-01-12 00:00:00 Completed Poliovirus, Live, Oral, Trivalent 1997-01-12 00:00:00 Completed DPT/HIB 1997-01-12 00:00:00 Completed Hep B, Adol or Pedi Dosage 1997-01-12 00:00:00 Completed Poliovirus, Live, Oral, Trivalent 1997-01-12 00:00:00 Completed Hep B, Adol or Pedi Dosage 1996 00:00:00 Completed Hep B, Adol or Pedi Dosage 1996 00:00:00 Completed Hep B, Adol or Pedi Dosage 1996 00:00:00 Completed TD, NOS Unknown Completed [facility] Influenza Virus Vaccine Quad .5 mL IM 6+ MO (FLUZONE/FLULAVAL/FL UARIX) Unknown Completed [facility] DT/Tetanus Unknown Completed [facility] DTaP, Unspecified Formulation Unknown Completed [facility] DPT/HIB Unknown Completed [facility] HEPATITIS A Unknown Completed [facility] Hep B, Adol or Pedi Dosage Unknown Completed [facility] Haemophilus influenzae type b vaccine, conjugate unspecified formulation Unknown Completed [facility] Meningococcal Polysaccharide (groups A, C, Y and W-135) conjugate vaccine (MCV4P) Unknown Completed [facility] MMR Unknown Completed [facility] IPV Unknown Completed [facility] Poliovirus, Live, Oral, Trivalent Unknown Completed [facility]heria [facility] TD, NOS Unknown Completed [facility] Influenza Virus Vaccine Quad .5 mL IM 6+ MO (FLUZONE/FLULAVAL/FL UARIX) Unknown Completed [facility] DT/Tetanus Unknown Completed [facility] DTaP, Unspecified Formulation Unknown Completed [facility] DPT/HIB Unknown Completed [facility] HEPATITIS A Unknown Completed [facility] Hep B, Adol or Pedi Dosage Unknown Completed [facility] Haemophilus influenzae type b vaccine, conjugate unspecified formulation Unknown Completed [facility] Meningococcal Polysaccharide (groups A, C, Y and W-135) conjugate vaccine (MCV4P) Unknown Completed [facility] MMR Unknown Completed [facility] IPV Unknown Completed [facility] Poliovirus, Live, Oral, Trivalent Unknown Completed [facility] Tetanus/Diptheria Unknown Completed [facility] HPV9 Unknown Completed [facility] TD, NOS Unknown Completed [facility] Influenza Virus Vaccine Quad .5 mL IM 6+ MO (FLUZONE/FLULAVAL/FL UARIX) Unknown Completed [facility] TD, NOS Unknown Completed [facility] Influenza Virus Vaccine Quad .5 mL IM 6+ MO (FLUZONE/FLULAVAL/FL UARIX) Unknown Completed [facility] DTaP, Unspecified Formulation Unknown Completed [facility] DPT/HIB Unknown Completed [facility] HEPATITIS A Unknown Completed [facility] Meningococcal Polysaccharide (groups A, C, Y and W-135) conjugate vaccine (MCV4P) Unknown Completed [facility] IPV Unknown Completed [facility]anus/Diptheria [facility] DT/Tetanus Unknown Completed [facility] Hep B, Adol or Pedi Dosage Unknown Completed [facility] Haemophilus influenzae type b vaccine, conjugate unspecified formulation Unknown Completed [facility] MMR Unknown Completed [facility] Poliovirus, Live, Oral, Trivalent Unknown Completed [facility] TD, NOS Unknown Completed [facility] Influenza Virus Vaccine Quad .5 mL IM 6+ MO (FLUZONE/FLULAVAL/FL UARIX) Unknown Completed [facility] DTaP, Unspecified Formulation Unknown Completed [facility] DPT/HIB Unknown Completed [facility] HEPATITIS A Unknown Completed [facility] [facility] Meningococcal Polysaccharide (groups A, C, Y and W-135) conjugate vaccine (MCV4P) Unknown Completed [facility] IPV Unknown Completed [facility] Tetanus/Diptheria Unknown Completed [facility] HPV9 Unknown Completed [facility] DT/Tetanus Unknown Completed [facility] Hep B, Adol or Pedi Dosage Unknown Completed [facility] Haemophilus influenzae type b vaccine, conjugate unspecified formulation Unknown Completed [facility] MMR Unknown Completed [facility] Poliovirus, Live, Oral, Trivalent Unknown Completed [facility] TD, NOS Unknown Completed [facility] Influenza Virus Vaccine Quad .5 mL IM 6+ MO (FLUZONE/FLULAVAL/FL UARIX) Unknown Completed [facility] DT/Tetanus Unknown Completed [facility] DTaP, Unspecified Formulation Unknown Completed [facility] DPT/HIB Unknown Completed [facility] HEPATITIS A Unknown Completed [facility] Hep B, Adol or Pedi Dosage Unknown Completed [facility] Haemophilus influenzae type b vaccine, conjugate unspecified formulation Unknown Completed [facility] Meningococcal Polysaccharide (groups A, C, Y and W-135) conjugate vaccine (MCV4P) Unknown Completed [facility] MMR Unknown Completed [facility] IPV Unknown Completed [facility] Poliovirus, Live, Oral, Trivalent Unknown Completed [facility] Tetanus/Diptheria Unknown Completed [facility] TD, NOS Unknown Completed [facility] Influenza Virus Vaccine Quad .5 mL IM 6+ MO (FLUZONE/FLULAVAL/FL UARIX) Unknown Completed [facility] DT/Tetanus Unknown Completed [facility] DTaP, Unspecified Formulation Unknown Completed [facility] DPT/HIB Unknown Completed [facility] HEPATITIS A Unknown Completed [facility] Hep B, Adol or Pedi Dosage Unknown Completed [facility] Haemophilus influenzae type b vaccine, conjugate unspecified formulation Unknown Completed [facility] Meningococcal Polysaccharide (groups A, C, Y and W-135) conjugate vaccine (MCV4P) Unknown Completed [facility] MMR Unknown Completed [facility] IPV Unknown Completed [facility] Poliovirus, Live, Oral, Trivalent Unknown Completed [facility] Tetanus/Diptheria [facility] Unknown Completed [facility] Vital Signs Vital Name Observation Time Observation Value Comments S ource Systolic blood pressure 2024-09-03 06:43:00 123 mm[Hg] [facility] Diastolic blood pressure 2024-09-03 06:43:00 75 mm[Hg] [facility] Heart rate 2024-09-03 06:43:00 124 /min [facility] Body temperature 2024-09-03 06:43:00 39.39 Brunilda [facility] Respiratory rate 2024-09-03 06:43:00 22 /min [facility] Oxygen saturation in Arterial blood by Pulse oximetry 2024-09-03 06:43:00 95 /min [facility] Body height 2024-09-03 05:30:00 152.4 cm [facility] Body weight 2024-09-03 05:30:00 88.905 kg [facility] BMI 2024-09-03 05:30:00 38.28 kg/m2 [facility] Systolic blood pressure 2024-07-31 15:15:00 128 mm[Hg] [facility] Diastolic blood pressure 2024-07-31 15:15:00 82 mm[Hg] [facility] Heart rate 2024-07-31 15:15:00 99 /min [facility] Body temperature 2024-07-31 15:15:00 36.33 Brunilda [facility] Respiratory rate 2024-07-31 15:15:00 16 /min [facility] Body height 2024-07-31 15:15:00 154.9 cm [facility] Body weight 2024-07-31 15:15:00 88.769 kg [facility] BMI 2024-07-31 15:15:00 36.98 kg/m2 [facility] Systolic blood pressure 2024-06-05 14:21:00 134 mm[Hg] [facility] Diastolic blood pressure 2024-06-05 14:21:00 84 mm[Hg] [facility] Heart rate 2024-06-05 14:21:00 90 /min [facility] Body temperature 2024-06-05 14:21:00 36.17 Brunilda [facility] Respiratory rate 2024-06-05 14:21:00 17 /min [facility] Body height 2024-06-05 14:21:00 154.9 cm [facility] Body weight 2024-06-05 14:21:00 87.59 kg [facility] BMI 2024-06-05 14:21:00 36.49 kg/m2 [facility] Systolic blood pressure 2024-02-05 19:02:00 140 mm[Hg] [facility] Diastolic blood pressure 2024-02-05 19:02:00 90 mm[Hg] [facility] Heart rate 2024-02-05 19:02:00 80 /min [facility] Body temperature 2024-02-05 19:02:00 36 Brunilda [facility] Respiratory rate 2024-02-05 19:02:00 18 /min [facility] Body height 2024-02-05 19:02:00 154.9 cm [facility] Body weight 2024-02-05 19:02:00 86.637 kg [facility] BMI 2024-02-05 19:02:00 36.09 kg/m2 [facility] Systolic blood pressure 2023-01-24 17:58:00 129 mm[Hg] [facility] Diastolic blood pressure 2023-01-24 17:58:00 87 mm[Hg] [facility] Heart rate 2023-01-24 17:58:00 84 /min [facility] Respiratory rate 2023-01-24 17:58:00 16 /min [facility] Body height 2023-01-24 17:58:00 154.9 cm [facility] Body weight 2023-01-24 17:58:00 94.666 kg [facility] BMI 2023-01-24 17:58:00 39.43 kg/m2 [facility] Oxygen saturation in Arterial blood by Pulse oximetry 2023-01-24 17:58:00 97 /min [facility] Systolic blood pressure 2021-12-29 20:20:00 140 mm[Hg] [facility] Diastolic blood pressure 2021-12-29 20:20:00 85 mm[Hg] [facility] Heart rate 2021-12-29 20:20:00 93 /min [facility] Body temperature 2021-12-29 20:20:00 35.89 Brunilda [facility] Respiratory rate 2021-12-29 20:20:00 18 /min [facility] Body height 2021-12-29 20:20:00 154.9 cm [facility] Body weight 2021-12-29 20:20:00 89.444 kg [facility] BMI 2021-12-29 20:20:00 37.26 kg/m2 [facility] Procedures Procedure Date / Time Performed Performing Clinicia n Source INFLUENZA A/B RSV COVID NAAT 2024-09-03 05:36:00 Sanaz Cloud [facility] HIV 1/2 AG-AB WITH REFLEX 2024-02-05 19:51:00 Winter Han [facility] SYPHILIS IGG/IGM 2024-02-05 19:51:00 Ankita Hna [facility] GARDASIL 9 (HPV 9V) VACCINE 2024-02-05 19:24:08 Winter Han [facility] ASSIGNMENT OF BENEFITS 2023-01-24 17:40:23 Docto r Unassigned, Meeker [facility] GC & CHLAMYDIA AMPLIFIED ASSAY 2021-12-29 21:29:00 Winter Han [facility] GALV ONLY - VAGINAL PATHOGENS BY NUCLEIC ACID TESTING 2021-12-29 21:29:00 Winter Han [facility] PAP SMEAR-LIQUID BASED-CP 2021-12-29 21:29:00 Winter Han [facility] HIV 1/2 AG-AB WITH REFLEX 2021-12-29 21:05:00 Winter Han [facility] GALV ONLY - SYPHILIS IGG/IGM 2021-12-29 21:05:00 Winter Han [facility] Encounters Start Date/Time End Date/Time Encounter Type Admission Type [facility] Facility Care Department Encounter ID Source 2024-09-21 21:48:00 2024-09-22 01:25:00 Emergency EM Gaston Britton [facility] [id number] [facility]3] 2024-09-02 23:35:00 2024-09-03 00:55:00 Emergency X SANAZ CLOUD SANDRA [facility] ERT [id number] [facility] 2024-09-02 23:35:00 2024-09-03 00:55:00 Emergency Sanaz Cloud [facility] ..840.114 350.1.13.10 4.2.7.2.686 [id number] [facility] 2024-08-13 14:30:00 2024-08-13 14:30:00 Outpatient R [facility] [id number] [facility] 2024-07-31 00:00:00 2024-08-04 15:53:20 Telephone Sarahi Raymundo [facility] ENGRAVING PRESS OPERATOR [facility] 1..840.114 350.1.13.10 4.2.7.2.686 [id number] [facility] 2024-08-03 00:00:00 2024-08-03 07:05:22 Case Management ChrisSarahi callahan [facility] ENGRAVING PRESS OPERATOR [facility]ILD [facility] 1..840.114 350.1.13.10 4.2.7.2.686 [id number] [facility] 2024-07-31 10:15:00 2024-07-31 10:49:23 [facility] [id number] 2024-07-31 10:15:00 2024-07-31 10:49:23 Office Visit Mykel Raymundohany [facility] ENGRAVING PRESS OPERATOR [facility] & CHILD [facility] 1..840.114 350.1.13.10 4.2.7.2.686 [id number] [facility] 2024-07-16 00:00:00 2024-07-17 14:03:56 Telephone Shola Grant [facility] 1..840.114 350.1.13.10 4.2.7.2.686 [id number] [facility] 2024-06-12 10:30:00 2024-06-12 10:30:00 Outpatient R [facility] [id number] [facility] 2024-06-05 09:15:00 2024-06-05 09:50:51 Outpatient R DAYANA GUZMAN [facility] [id number] [facility] 2024-06-05 09:15:00 2024-06-05 09:50:51 Office Visit Dayana Guzman [facility] ENGRAVING PRESS OPERATOR [facility] CHILD [facility] 1..840.114 350.1.13.10 4.2.7.2.686 [id number] [facility] 2024-06-04 13:30:00 2024-06-04 13:30:00 Outpatient R [facility] [id number] [facility] 2024-05-21 00:00:00 2024-05-21 09:43:30 Letter (Out) Nurse, Norman Rmchp Rgv Cprit Obgyn [facility] ENGRAVING PRESS OPERATOR [facility] CHILD [facility] 1..840.114 350.1.13.10 4.2.7.2.686 [id number] [facility] 2024-04-09 16:15:00 2024-04-09 16:15:00 Outpatient R [facility] [id number] [facility] 2024-03-17 14:30:00 2024-03-17 14:30:00 Outpatient R WINTER HAN [facility] [id number] [facility] 2024-03-12 14:30:00 2024-03-12 14:30:00 Outpatient R [facility] [id number] [facility] 2024-02-07 00:00:00 2024-02-07 00:00:00 Telephone Winter Han [facility] ENGRAVING PRESS OPERATOR [facility] CHILD [facility] ..840.114 350.1.13.10 4.2.7.2.686 [id number] [facility] 2024-02-05 14:00:00 2024-02-05 14:51:20 Outpatient R WINTER HAN [facility] [id number] [facility] 2024-02-05 14:00:00 2024-02-05 14:51:20 Office Visit Winter Han [facility] ENGRAVING PRESS OPERATOR [facility]ILD [facility] ..840.114 350.1.13.10 4.2.7.2.686 [id number] [facility] 2024-01-29 10:00:00 2024-01-29 10:00:00 Outpatient R AKUA ELLISON [facility] [id number] [facility] 2024-01-28 13:00:00 2024-01-28 13:00:00 Outpatient R HEMANT WILLIAM TRAN [facility] [id number] [facility] 2024-01-28 00:00:00 2024-01-28 00:00:00 Patient Secure Msg Doctor Unassigned, Meeker [facility] 1.114 350.1.13.10 4.2.7.2.686 [id number] [facility] 2023-06-18 00:00:00 2023-06-18 00:00:00 Patient Secure Msg Pcp, Patient Does Not Have A [facility] 1.114 350.1.13.10 4.2.7.2.686 [id number] [facility] 2023-03-11 13:30:00 2023-03-11 13:30:00 Outpatient R WILLIAM MARCOS CHERYAL [facility] [id number] [facility] 2023-03-06 13:15:00 2023-03-06 13:15:00 Outpatient R ALYCIA MUHAMMAD [facility] [id number] [facility] 2023-02-28 13:45:00 2023-02-28 13:45:00 Outpatient R WILLIAM MARCOS CHERYAL [facility] [id number] [facility] 2023-01-24 13:00:00 2023-01-24 13:16:08 Outpatient R WILLIAM MARCOS CHERYAL [facility] [id number] [facility] 2023-01-24 13:00:00 2023-01-24 13:16:08 Office Visit William Marcos [facility] 1.114 350.1.13.10 4.2.7.2.686 [id number] [facility] 2023-01-24 00:00:00 2023-01-24 00:00:00 Orders Only Doctor Unassigned, Meeker [facility] 1.840.114 350.1.13.10 4.2.7.2.686 [id number] [facility] 2023-01-21 00:00:00 2023-01-21 00:00:00 Telephone Winter Han [facility] ENGRAVING PRESS OPERATOR [facility] 1..840.114 350.1.13.10 4.2.7.2.686 [id number] [facility] 2022-09-03 10:45:00 2022-09-03 10:45:00 Outpatient R ALYCIA MUHAMMAD [facility] [id number] [facility] 2022-03-15 10:30:00 2022-03-15 10:30:00 Outpatient R SLICK DIAS [facility] [id number] [facility] 2022-01-01 00:00:00 2022-01-01 00:00:00 Telephone Winter Han [facility] ENGRAVING PRESS OPERATOR [facility] CHILD [facility] 1..840.114 350.1.13.10 4.2.7.2.686 [id number] [facility] 2021-12-29 14:15:00 2021-12-29 15:04:41 Office Visit Winter Han [facility] ENGRAVING PRESS OPERATOR [facility] 1..840.114 350.1.13.10 4.2.7.2.686 [id number] [facility] 2021-12-29 14:15:00 2021-12-29 15:04:41 Outpatient R WINTER HAN [facility] [id number] [facility] 2021-12-29 14:15:00 2021-12-29 14:15:00 Outpatient R WINTER HAN [facility] [id number] [facility] 2021-12-28 15:15:00 2021-12-28 15:15:00 Outpatient R WINTER HAN [facility] [id number] [facility] 2021-10-24 01:46:00 2021-10-24 02:53:00 Emergency X QURESHIANDREW [facility] ERT [id number] [facility] 2021-10-24 01:46:00 2021-10-24 02:53:00 Emergency Andrew Qureshi [facility] .840.114 350.1.13.10 4.2.7.2.686 [id number] [facility] 2021-09-25 15:45:00 2021-09-25 15:45:00 Outpatient R NAOMIE CLOUD [facility] [id number] [facility] 2021-08-23 00:00:00 2021-08-23 00:00:00 Telephone Winter Han [facility] ENGRAVING PRESS OPERATOR [facility]ILD [facility] .840.114 350.1.13.10 4.2.7.2.686 [id number] [facility] 2021-06-13 00:00:00 2021-06-13 00:00:00 Telephone Sun Uriostegui ..840.114 350.1.13.10 4.2.7.2.686 [id number] [facility] 2021-04-26 00:00:00 2021-04-26 00:00:00 Telephone Winter Han [facility] ENGRAVING PRESS OPERATOR [facility] 1..840.114 350.1.13.10 4.2.7.2.686 [id number] [facility] 2021-04-25 14:50:03 2021-04-25 16:09:42 Office Visit Winter Han [facility] ENGRAVING PRESS OPERATOR [facility] 1.840.114 350.1.13.10 4.2.7.2.686 [id number] [facility] 2021-04-25 14:45:00 2021-04-25 14:45:00 Outpatient R WINTER HAN [facility] [id number] [facility] 2021-04-25 00:00:00 2021-04-25 00:00:00 Orders Only Doctor Unassigned, Meeker [facility] 1..114 350.1.13.10 4.2.7.2.686 [id number] [facility] 2021-04-17 16:00:00 2021-04-17 16:00:00 Outpatient SLICK BOYCE [facility] [id number] [facility] 2021-01-17 00:00:00 2021-01-17 00:00:00 Patient Outreach Patel Carreon [facility] 1..114 350.1.13.10 4.2.7.2.686 [id number] [facility] 2020-11-21 00:00:00 2020-11-21 00:00:00 Telephone Winter Han [facility] ENGRAVING PRESS OPERATOR [facility] 1.84.114 350.1.13.10 4.2.7.2.686 [id number] [facility] 2020-11-17 11:03:31 2020-11-17 11:48:59 Office Visit Winter Han [facility] ENGRAVING PRESS OPERATOR [facility] 1.2840.114 350.1.13.10 4.2.7.2.686 [id number] [facility] 2020-11-17 10:45:00 2020-11-17 10:45:00 Outpatient R WINTER HAN [facility] [id number] [facility] 2020-10-26 14:45:00 2020-10-26 14:45:00 Outpatient R WINTER HAN [facility] [id number] [facility] 2020-05-02 14:00:00 2020-05-02 14:00:00 Outpatient R JUDAHHADLEYSOCO REHMAN [facility] [id number] [facility] 2020-04-20 00:00:00 2020-04-20 00:00:00 Patient Secure Msg Doctor Unassigned, Meeker [facility] 1.840.114 350.1.13.10 4.2.7.2.686 [id number] [facility] 2020-04-19 10:26:53 2020-04-19 10:46:53 Urgent Care Pob1, Acute Care Clinic Rosalba Chavis [facility] Office [address] [facility] 1..840.114 350.1.13.10 4.2.7.2.686 [id number] [facility] 2020-04-19 10:20:00 2020-04-19 10:20:00 Outpatient R [facility] [id number] [facility] 2020-03-31 00:00:00 2020-03-31 00:00:00 Telephone Slick Dias [facility] ENGRAVING PRESS OPERATOR [facility] 1.840.114 350.1.13.10 4.2.7.2.686 [id number] [facility] 2020-03-29 15:45:00 2020-03-29 15:45:00 Outpatient R WINTER HAN [facility] [id number] [facility] 2020-01-19 00:00:00 2020-01-19 00:00:00 Telephone Shola Grant [facility] Building 1.2.840.114 350.1.13.10 4.2.7.2.686 [id number] [facility] 2019-11-20 00:00:00 2019-11-20 00:00:00 Telephone Shola Grant Manjinder [facility] [place] [facility] 1.2.840.114 350.1.13.10 4.2.7.2.686 [id number] [facility] 2019-11-13 00:00:00 2019-11-13 00:00:00 Telephone Shola Grant [facility] Building 1.2.840.114 350.1.13.10 4.2.7.2.686 [id number] [facility] 2019-11-13 00:00:00 2019-11-13 00:00:00 Orders Only Doctor Unassigned, Meeker [facility] 1.2.840.114 350.1.13.10 4.2.7.2.686 [id number] [facility] 2019-09-28 00:00:00 2019-09-28 00:00:00 Orders Only Doctor Unassigned, Meeker [facility] 1.2.840.114 350.1.13.10 4.2.7.2.686 [id number] [facility] 2019-08-03 11:30:00 2019-08-03 11:58:24 Outpatient R SHOLA GRANT [facility] [id number] [facility] 2019-07-16 15:38:10 2019-07-16 16:39:50 Routine Visit Shola Grant [facility] 1.2.840.114 350.1.13.10 4.2.7.2.686 [id number] [facility] 2019-07-09 00:00:00 2019-07-09 00:00:00 Telephone [facility] 1.2.840.114 350.1.13.10 4.2.7.2.686 [id number] [facility] 2019-07-06 00:00:00 2019-07-06 00:00:00 Refill [facility] Building 1.2.840.114 350.1.13.10 4.2.7.2.686 [id number] [facility] 2019-07-02 17:22:06 2019-07-02 17:37:06 [employer] Paralegal Visit 1, [facility] Shola Grant [facility] 1.2.840.114 350.1.13.10 4.2.7.2.686 [id number] [facility] 2019-07-02 16:34:25 2019-07-02 17:06:37 Routine Visit JudahSoco cadena [facility] 1.2.840.114 350.1.13.10 4.2.7.2.686 [id number] [facility] 2019-06-26 11:49:51 2019-06-26 12:02:16 Nurse Visit Visit, [facility] Nurse Shola Grant [facility] Building 1.2.840.114 350.1.13.10 4.2.7.2.686 [id number] [facility] 2019-06-26 10:47:20 2019-06-26 11:30:48 Nurse Visit Nurse, [facility] Shola Grant [facility] Building 1.2.840.114 350.1.13.10 4.2.7.2.686 [id number] [facility] 2019-06-26 00:00:00 2019-06-26 00:00:00 Telephone Vanaphan, [facility] 1.2.840.114 350.1.13.10 4.2.7.2.686 [id number] [facility] 2019-06-26 00:00:00 2019-06-26 00:00:00 Orders Only Doctor Unassigned, Meeker [facility] 1.2.840.114 350.1.13.10 4.2.7.2.686 [id number] [facility] 2019-06-24 09:26:07 2019-06-24 09:41:07 [employer] Paralegal Visit 1, [facility] Phyllis [facility] 1.2.840.114 350.1.13.10 4.2.7.2.686 [id number] [facility] 2019-06-24 00:00:00 2019-06-24 00:00:00 Orders Only Doctor Unassigned, Meeker [facility] 1.2.840.114 350.1.13.10 4.2.7.2.686 [id number] [facility] 2019-06-24 00:00:00 2019-06-24 00:00:00 Telephone Shola Grant [facility] 1.2.840.114 350.1.13.10 4.2.7.2.686 [id number] [facility] 2019-06-19 00:00:00 2019-06-19 00:00:00 Case Management Phyllis [facility] 1.2.840.114 350.1.13.10 4.2.7.2.686 [id number] [facility] 2019-06-18 14:30:02 2019-06-18 14:45:02 [employer] Paralegal Visit 1, [facility] Shola Grant [facility] 1.2.840.114 350.1.13.10 4.2.7.2.686 [id number] [facility] 2019-06-18 00:00:00 2019-06-18 00:00:00 Orders Only Doctor Unassigned, Meeker [facility] 1.840.114 350.1.13.10 4.2.7.2.686 [id number] [facility] 2019-06-11 15:59:47 2019-06-11 16:59:57 Routine Visit Shola Grant [facility] 1.840.114 350.1.13.10 [id number] [facility] Results Test Description Test Time Test Comments Results Result Co [id number] 15:39:01* Test Item Value Reference Range Interpretation Comme [facility] Syphilis IgG/IgM (test code = 45770-9) Non-reactive Non-reactive LINDSAY (test code = LINDSAY) Non-reactive - No serologic evidence of T. pallidum infection. Cannot exclude incubating or early syphilis. Submit a second specimen in 2-4 weeks if syphilis is clinically suspected. Equivocal - Further testing to follow. Reactive - Further testing to follow. Lab Interpretation (test code = 67857-7) Normal [facility] 1/2 Ag-Ab with [id number] 05:05:07* Test Item Value Reference Range Interpretation Comme [facility] HIV Semi-quantitative (test code = 38849-8) 0.11 Negative LINDSAY (test code = LINDSAY) Non-reactive for HIV-1 antigen and HIV-1/HIV-2 antibodies. ?No laboratory evidence of HIV infection. ?Repeat in 2-4 weeks if acute [facility] infection is suspected. [facility] [id number] 05:05:07* Test Item Value Reference Range Interpretation Comme [facility] HIV Semi-quantitative (test code = 76682-6) 0.11 Negative LINDSAY (test code = LINDSAY) Non-reactive for HIV-1 antigen and HIV-1/HIV-2 antibodies. ?No laboratory evidence of HIV infection. ?Repeat in 2-4 weeks if acute HIV infection is suspected. [facility] [id number] 14:51:07* Test Item Value Reference Range Interpretation Comme nts Syphilis IgG/IgM (test code = 47437-4) Non-reactive Non-reactive LINDSAY (test code = LINDSAY) Non-reactive - No serologic evidence of T. pallidum infection. Cannot exclude incubating or early syphilis. Submit a second specimen in 2-4 weeks if syphilis is clinically suspected. Equivocal - Further testing to follow. Reactive - Further testing to follow. Lab Interpretation (test code = 22880-6) [facility] [id number] 06:58:37* Test Item Value Reference Range Interpretation Comme nts HIV Semi-quantitative (test code = 99898-6) Negative Negative LINDSAY (test code = LINDSAY) Non-reactive for HIV-1 antigen and HIV-1/HIV-2 antibodies. ?No laboratory evidence of HIV infection. ?Repeat in 2-4 weeks if acute HIV infection is suspected. [facility] Notes Date/Time Note Provider Source 2024-09-22 00:33:00 [facility] ([facility]) EMERGENCY PROVIDER REPORT REPORT#:[id number] REPORT STATUS: Signed DATE:09/22/24 TIME: 32 PATIENT: JERRI CARTER UNIT #: [id number] ROOM/BED: : 96 AGE: 28 SEX: F PCP PHYS: No Primary or Family Physician SERVICE AUTHOR: Gaston Britton MD LOCATION: [facility] REP SRV REP SRV TM: 0033 * ALL edits or amendments must be made on the electronic/computer document * HPI-General Illness Free Text HPI Notes Free Text HPI Notes 28-year-old female presenting as a transfer from outside facility. Patient with recent history of multiple falls x 4 days, has been having right hip/posterior leg pain and feels unsteady when walking. Has been taking numerous medications clued gabapentin, Xanax, Klonopin, Tylenol with codeine and has not had much relief. Presented to outside hospital where she was noted to be tired/fatigued and somewhat out of it, was transferred here due to prolonged return to back to baseline and neurology evaluation. While here patient feeling much better. Spouse at bedside relates that she has been having seizure-like events intermittently for the past couple weeks, last episode was 2 days ago which was very brief where her lips turn red, unclear if there was shaking activity. General Confirmed Patient Yes Initial Greet Date/Time 09/21/240 Presentation Chief Complaint fall, right leg pain Review of Systems ROS Statements All systems rev neg except as marked. Free Text ROS Notes Free Text ROS Notes General: (-) fever, (-) chills, (-) generalized weakness. Skin: (-) rash, (-) jaundice Eyes: (-) visual changes, (-) diplopia HENT: (-) congestion, (-) rhinorrhea Respiratory: (-) cough, (-) dyspnea Cardiovascular: (-) chest pain, (-) palpitations GI: (-) abdominal pain, (-) nausea, (-) vomiting. : (-) dysuria, (-) frequency, (-) urgency. Musculoskeletal: (-) myalgia, (-) swelling, (-) back pain, (-) neck pain Neurological: (-) focal weakness, (-) numbness, (-) tingling Psychiatric: (-) depression, (-) anxiety, (-) suicidal ideation, (-) homicidal ideation. Past Medical History - Adult Stated Complaint REQUEST MRI Allergies Coded Allergies: No Known Allergies (09/21/24) Calculated Suicide Risk (nurs) No risk Review of Nursing Notes Rev avail, and agree Smoking status for patients 13 years old or older: Current some day smoker Physical Exam Vital Signs Vital Signs First Documented: Result Date Time Pulse Ox 99 09/21 2152 B/P 129/83 09/21 2152 B/P Mean 98 09/21 2152 O2 Delivery Room air 09/21 2152 Temp 36.8 09/21 2152 Pulse 89 09/21 2152 Resp 14 09/21 2152 Last Documented: Result Date Time Pulse Ox 99 09/22 125 B/P 131/90 09/22 125 B/P Mean 103 09/22 125 O2 Delivery Room air 09/22 125 Temp 37.3 09/22 125 Pulse 78 09/22 125 Resp 18 09/22 125 Review of Vital Signs Reviewed Free Text PE Notes Free Text PE Notes GENERALIZED APPEARANCE: Patient is awake, alert, in no acute distress. VITAL SIGNS: Per nurse's note, reviewed by me . SKIN: Warm, dry, intact EYES: PERRL, EOMI, (-) conjunctival pallor. ENMT: Mucous membranes moist. NECK: Trachea midline; (-) stiffness, (-) meningismus CHEST AND RESPIRATORY: Clear to auscultation bilaterally, (-) wheeze, (-) rales, (-) rhonchi, (-) respiratory distress HEART AND CARDIOVASCULAR: regular rate and rhythm, (-) irregularity; (-) murmur, (-) gallop. ABDOMEN AND GI: Soft; (-) tenderness. No guarding or rebound. MUSCULOSKELETAL/EXTREMITIES: (-) joint deformity. No midline C/T/L-spine tenderness. Mild right hip/posterior thigh TTP. No ecchymosis or bruising. Compartments are soft VASCULAR: (+) distal pulses. NEURO AND PSYCH: A Ox4, normal speech, CN2-12 intact, normal motor, normal sensory, normal coordination. Interpretation Diagnostics Lab Results Interpretation Results Recent Impressions: RADIOLOGY - XR FEMUR MIN 2 VWS RT 09/21 2241 Report Impression - Status: SIGNED Entered: 09/21/2024 2341 IMPRESSION: Negative exam. Impression By: Franklin Raines MD RADIOLOGY - XR PELVIS 09/21 2241 Report Impression - Status: SIGNED Entered: 09/21/2024 2334 IMPRESSION: Negative exam. Impression By: Franklin Raines MD Imaging Statement Radiographic studies reviewed and considered in the medical decision-making. Re-Evaluation MDM Free Text MDM Notes Free Text MDM Notes 28-year-old female presenting for recurrent falls from outside facility x 4 days. Had lab work and CT imaging done at outside facility tablets within normal limits, was diagnosed with concussion/postconcussive syndrome, and was sent here for neurology evaluation on my evaluation patient is nontoxic well- appearing, has no focal neurologic deficits. There is evidence of polypharmacy, patient with numerous medications including gabapentin, Tylenol with codeine, Klonopin, Xanax all of which may be contributing to her somnolence and mental status. Patient states that she has been taking these medications for pain which has not been helping. Records reviewed, patient does not appear to have imaging from outside facility. Will obtain x-ray imaging, treat with Toradol/ lidocaine patch and will continue reassess patient. Prior to obtaining the patient's history, performing the physical exam and reviewing the diagnostics, initial considerations based on the presenting problem included, but were not limited to: Intracranial pathology, stroke, trauma, seizure disorder, meningitis, hypoxia, hypercapnia, electrolyte abnormalities, thyroid disease, dehydration, myocardial infarction, arrhythmia, renal failure, liver failure, pulmonary infection, urinary tract infection, sepsis, hypovolemia, internal hemorrhage, drug reaction or toxicity, dementia, delirium, psychiatric disorder, toxic ingestion. X-ray reviewed, negative for acute pathology. On reevaluation patient resting comfortably in no distress, able ambulate with steady gait. No further episodes of seizure-like activity. There is no evidence of neurologic deficits. She feels better status post medications. I suspect a large majority of symptoms are either postconcussive in nature versus polypharmacy and recommended cessation of above medications to which patient agrees to. Have recommended for patient to take Tylenol/Naprosyn/lidocaine patch for supportive care instead. Patient stable discharge with outpatient follow-up. ED Course Medication(s) Ordered Medication(s) Ordered: Central Nervous System Agents Sig/Ramiro Start time Last Medication Dose Route Stop Time Status Admin Ketorolac 15 MG X1ED STA 09/21 2234 DC 09/21 Tromethamine IV 09/218 Skin And Mucous Membrane Agent Sig/Ramiro Start time Last Medication Dose Route Stop Time Status Admin Lidocaine 1 PATCH X1ED STA 09/21 2234 DC 09/21 TOPICAL 09/21 2235 2307 Patient Discharge Departure Vital Signs/Condition Vital Signs First Documented: Result Date Time Pulse Ox 99 09/21 2152 B/P 129/83 09/21 2152 B/P Mean 98 09/21 2152 O2 Delivery Room air 09/21 2152 Temp 36.8 09/21 2152 Pulse 89 09/21 2152 Resp 14 09/21 2152 Last Documented: Result Date Time Pulse Ox 99 09/22 125 B/P 131/90 09/22 125 B/P Mean 103 09/22 125 O2 Delivery Room air 09/22 125 Temp 37.3 09/22 125 Pulse 78 09/22 125 Resp 18 11/26 0125 All vital signs available at the time of this entry have been reviewed. Condition Stable Clinical Impression Clinical Impression Primary Impression: Seizure-like activity Secondary Impressions: At risk for polypharmacy, Leg pain Time of Impression 0033 Disposition Decision Discharge )( Discharged to Home Yes )( Time 0033 )( Date 09/22/24 Discharge/Care Plan Counseled Regarding Diagnosis, Imaging studies, Prescriptions, Need for follow- up, When to return to ED (Auto) Prescriptions Current Visit Scripts NAPROXEN (NAPROSYN) 500 MG PO BID PRN PRN PAIN NAPROXEN (NAPROSYN) 500 MG PO BID PRN PRN PAIN #15 TABS LIDOCAINE (LIDODERM 5%) 1 PATCH TRANSDERM DAILY LIDOCAINE (LIDODERM 5%) 1 PATCH TRANSDERM DAILY #12 PATCHES Departure Forms [facility] PCP LIST at 0416 RPT #:[id number] END OF REPORT [facility] 2024-09-03 00:54:04 Awake, alert oriented X4, respiratory even and unlabored,skin w/d color appropriate for race, moves all ext well, pt encouraged to follow up with pcp and or return as needed. Pt given printed and verbal discharge instructions regarding acute cough and nausea and vomiting. Patient verbalized understanding and signature obtained, patient denies any other concerns. Prescriptions provided. Advised to seek medical attention for new/prolonged/worsening of symptoms. No adverse reaction to meds given in ER noted upon discharge. Pt ambulated to the lobby with steady gait. 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 2024-09-02 23:29:38 Pt presents to ED with cough, n/v/d for 2 days. Theraflu at 7pm CCA Kim RN 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 Also with nausea, vomiting and diarrhea. She denies any sick contacts. No bad food exposure. No recent trips or travel or antibiotics. She has been using TheraFlu at home and last had a dose around 7 PM. She does smoke cigarettes. No shortness of breath. She reports she last vomited about 1 hour prior to arrival. Here for evaluation. Past Medical History/Immunizations: Past Medical History: Diagnosis Date Anemia with previous Breakthrough bleeding on Nexplanon 10/15/2017 Chlamydia 04/03/2017 Diet controlled gestational diabetes mellitus (GDM) in third trimester 07/24/2019 during Multiple body piercings lip, tongue and bellybutton Tobacco use disorder Tetanus received in last 5 years: No Allergies: Allergies Allergen Reactions Pertussis Vaccines Anaphylaxis As a child Past Social History: Tobacco Use Every Day; Cigarettes: Started 12/24/2013; 0.5 packs/day; Smoked an average of 0.5 packs/day for 10.7 years Smokeless Tobacco: Never used smokeless tobacco. Alcohol Use Yes. Comments: social Drug Use Not Currently. Sexual Activity Sexually active; Partners: Male; Control/Protection: Surgical. Comments: LSI: 05/2024 Past Surgical History: Past Surgical History: Procedure Laterality Date SECTION N/A 08/25/2019 Surgeon: Shola Grant MD; Location: [facility] OR Location TUBAL LIGATION 2018 Review of Systems: Review of Systems Constitutional: Positive for fever. Negative for chills. Respiratory: Positive for cough. Cardiovascular: Negative for chest pain. Gastrointestinal: Positive for diarrhea, nausea and vomiting. Negative for abdominal pain. Genitourinary: Negative for dysuria. Musculoskeletal: Positive for myalgias. Negative for neck pain and neck stiffness. Skin: Negative for wound. Neurological: Negative for dizziness. Psychiatric/Behavioral: Negative for agitation. Endocrine: Negative for goiter. Physical Exam: ED Triage Vitals [09/02/24 2330] Weight 88.9 kg (196 lb) Actual or estimated Height 1.524 m (5') BP 118/78 Pulse 130 Resp 20 Temp 37.7 ?C (99.9 ?F) Temp src SpO2 96 % Measured on Room air Physical Exam Vitals and nursing note reviewed. Constitutional: Appearance: Normal appearance. She is obese. HENT: Head: Normocephalic and atraumatic. Right Ear: Tympanic membrane, ear canal and external ear normal. Left Ear: Tympanic membrane, ear canal and external ear normal. Nose: Nose normal. Mouth/Throat: Mouth: Mucous membranes are moist. Pharynx: Oropharynx is clear. No oropharyngeal exudate or posterior oropharyngeal erythema. Cardiovascular: Rate and Rhythm: Regular rhythm. Tachycardia present. Pulmonary: Effort: Pulmonary effort is normal. No respiratory distress. Breath sounds: No stridor. No wheezing or rhonchi. Musculoskeletal: General: Normal range of motion. Cervical back: Normal range of motion and neck supple. Skin: General: Skin is warm and dry. Neurological: General: No focal deficit present. Mental Status: She is alert and oriented to person, place, and time. Radiology: No orders to display Lab Results: Lab Results INFLUENZA A/B RSV COVID NAAT - Normal Result Value Ref Range Influenza A NAAT Negative Negative Influenza B NAAT Negative Negative RSV by PCR Negative Negative SARS-CoV-2 NAAT Negative Negative EKG: If EKG completed, see Procedure Note. Orders and Treatments: Orders Placed This Encounter Procedures Influenza A B RSV COVID NAAT Lab Only COVID Interpretation Orders Placed This Encounter Medications ondansetron (ZOFRAN-ODT) disintegrating tablet 4 mg codeine-guaifenesin (ROBITUSSIN AC) 10-100 mg/5 mL oral solution 10 mL ondansetron 4 mg disintegrating tablet benzonatate 100 mg capsule brompheniramine-pseudoephedr ine-DM (BROMFED DM) 2-30-10 mg/5 mL syrup benzonatate (TESSALON PERLES) capsule 100 mg First Provider Eval: ED Events Date/Time Event User Comments 09/02/242327 Medical Screening Begins PEDRO LUIS HOLT SANAZ -- 09/02/242327 First Provider Evaluation SANAZ CLOUD DO -- ED COURSE Diagnosis/Impression as of 09/03/24 0038 Acute cough Nausea and vomiting, unspecified vomiting type Procedures: Procedures MDM: Medical Decision Making The patient presents from home for evaluation for cough as well as body aches for the past 2 days. Also with nausea, vomiting and diarrhea. She denies any sick contacts. No bad food exposure. No recent trips or travel or antibiotics. She has been using TheraFlu at home and last had a dose around 7 PM. She does smoke cigarettes. No shortness of breath. She reports she last vomited about 1 hour prior to arrival. The patient was tachycardic upon arrival but afebrile. She is obese. Her lungs are clear bilaterally. She has dry mucous membranes. Her pharynx is pink and without exudates or erythema. Her tympanic membranes are pearly graham. No concern for bacterial infection based on her presentation. Will screen the patient for COVID, influenza and RSV. Will also give the patient antiemetics here in the ER. Anticipate discharge home later. 0038 - the patient is doing well here in the ER. Her nausea and vomiting has resolved after administration of Zofran. She was given a p.o. challenge and able to tolerate by mouth without difficulty. Her viral swab is negative for COVID, influenza and RSV. She remained stable here in the ER and is okay for discharge home with PCP follow-up. Recommend she is [id number]-[id number] cough and cold medications as needed for her symptoms. Problems Addressed: Acute cough: acute illness or injury Nausea and vomiting, unspecified vomiting type: acute illness or injury Amount and/or Complexity of Data Reviewed Labs: ordered. Decision-making details documented in ED Course. Risk OTC drugs. Prescription drug management. Flowsheet Documentation: Scoring Tools: No data recorded Disposition/Condition: ED Disposition ED Disposition Discharge Condition Stable Comment -- Discharge Medications: Patient's Medications START taking these medications BENZONATATE 100 MG CAPSULE Take 1 capsule by mouth 3 (three) times daily as needed for Cough. BROMPHENIRAMINE-PSEUDOEPHEDR INE-DM (BROMFED DM) 2-30-10 MG/5 ML SYRUP Take 5 mL by mouth 4 (four) times daily as needed for Cough or Cold symptoms. ONDANSETRON 4 MG DISINTEGRATING TABLET Take 1 tablet by mouth every 8 (eight) hours as needed for Nausea and Vomiting (N/V). CONTINUE taking these medications which have NOT CHANGED METRONIDAZOLE 0.75 % (37.5MG/5 GRAM) VAGINAL GEL Insert 1 Applicator into vagina at bedtime. START taking Modified Medications as Prescribed No medications on file STOP taking these medications No medications on file Follow-up: Electronically signed by: Sanaz Cloud DO 09/03/24 0039 [facility] 2024-08-04 15:52:57 Medication was sent to [facility] pharmacy 08/03/24. Maryann Medina RN 08/04/2024 3:53 PM Maryann Rodriguez RN [facility] 2024-07-31 12:45:55 Jerri Carter is a 28 year old female Pt is requesting for her prescription to be sent to a different pharmacy due to pharmacy being out of stock. [facility] [address] [place] [address] Ph: [phone] Geraldine Reynaga [facility] 2024-07-17 14:02:[address] Grant- she does not offer reversal. Pt wanted to see what type of tubal was done. Instructed her to call medical records to have it sent or she may ask specialist to request visit from 07/2019. Verbalized understanding. CLAUDIA RODRIGEZ RN 07/17/2024 2:03 PM Claudia Rodrigez RN [facility] 2024-07-17 10:43:07 Speaking with provider. CLAUDIA RODRIGEZ RN 07/17/2024 10:[address] [facility] 2024-07-16 08:49:33 The patient inquired about the possibility of reversing the tubal ligation and mentioned that Dr. Grant performed the procedure. Kellee Quach [facility] 2024-02-07 13:52:07 Pt notified medication sent to pharmacy, verbalized understanding. T [facility] 2024-02-07 13:44:18 Please notify the patient her labs are indicative of BV, meds have been sent to her pharmacy on file. Please have her complete the entire course as prescribed. BENJI Regalado 02/07/2024 1:[address] [facility] 2024-02-07 09:09:47 Patient seen positive results for BV and informed will route to provider for new orders, verbalized understanding. T [facility] 2024-02-07 09:02:05 Copied from [facility] #[id number]. 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
[2024-09-30] MEDS ORDERED: KETOROLAC 30 MG/ML INJ ONE (01:00)
[2024-09-30] MEDS ORDERED: DIAZEPAM 5 MG TABLET ONE (01:01)
[2024-09-30] MEDS ORDERED: DIPHENHYDRAMINE 50 MG/ML VIAL ONE (01:01)
[2024-09-30] MEDS ORDERED: METOCLOPRAMIDE 10 MG/2mL INJ ONE (01:01)
[2024-09-30] MEDS ORDERED: NA CHLORIDE 0.9% 1,000 ML ONE (01:02)
[2024-09-30 01:20] LABS: Absolute Basophils 0.1 K/uL (0-0.5); Absolute Eosinophils 0.1 K/uL (0-0.5); Absolute Lymphocytes (CBC) 2.5 K/uL (0.7-4.9); Absolute Monocytes 0.7 K/uL (0.1-1.3); Eosinophils % 1.7 % (0-4.4); Hematocrit 38.8 % (36.0-45.0); Hemoglobin 12.5 g/dL (12.0-15.0); MCH 28.2 pg (27.0-35.0); MCHC 32.3 g/dL (32.0-36.0); MCV 87.5 fL (80-100); MPV 7.7 fL (7.6-11.3); Monocytes % 8.8 % (3.3-12.3); Neutrophils % 59.5 % (41.7-73.7); Platelets 339 thou/uL (152-406); RBC Red Blood Cell Count 4.43 M/uL (3.86-4.86); Red Cell Distribution Width 14.6 % (12.1-15.2)
[2024-09-30 01:48] LABS: ALT/SGPT 39 U/L (13-56); AST/SGOT 20 U/L (15-37); Albumin 3.4 g/dL (3.4-5.0); Alkaline Phosphatase 56 U/L (45-117); Anion Gap 9.5 mEq/L (5.0-15.0); BUN Blood Urea Nitrogen 4 mg/dL (7-18); Barbiturates NEGATIVE (NEGATIVE); Benzodiazepines POSITIVE (NEGATIVE); Bicarbonate 24 mEq/L (21-32); Bilirubin Total 0.2 mg/dL (0.2-1.0); Cocaine NEGATIVE (NEGATIVE); Globulin 3.4 g/dL (2.3-3.5); Glomerular Filtration Rate 128 ml/min (=/>90); Glucose Level 111 mg/dL (74-106); METHAMPHETAM POSITIVE (NEGATIVE); Methadone NEGATIVE (NEGATIVE); Opiates NEGATIVE (NEGATIVE); Phencyclidine NEGATIVE (NEGATIVE); Potassium 3.5 mEq/L (3.5-5.1); Protein, Total 6.8 g/dL (6.4-8.2); Sodium Level 137 mEq/L (136-145); THC Cannibis NEGATIVE (NEGATIVE)
[2024-09-30 01:49] LABS: Bilirubin Direct < 0.2 mg/dL (0-0.2); Specific Gravity 1.015 (1.005-1.030)
--- NOTE | 2024-09-30 02:13 | RAD REPORT ---
PROCEDURE: CT Head Without Intravenous Contrast CLINICAL INDICATION: The patient is 28 years old and is Female; SEIZURE TECHNIQUE: Axial computed tomography images of the head/brain without intravenous contrast. Sagittal and coron al reformatted images were created and reviewed. This CT exam was performed using one or more of the following dose reduction techniques: automated exposure control, adjustment of the mA and/or kV according to patient size, and/or use of iterative reconstruction technique. DLP: 827 mGy*cm COMPARISON: CT head without contrast dated 09/21/2024. FINDINGS: BRAIN: Unremarkable. No hemorrhage. No significant white matter disease. No edema. VENTRICLES: Unremarkable. No ventriculomegaly. BONES/JOINTS: Unremarkable. No acute fracture. SOFT TISSUES: Unremarkable. SINUSES: Unremarkable as visualized. No acute sinusitis. MASTOID AIR CELLS: Unremarkable as visualized. No mastoid effusion. IMPRESSION: No acute intracranial abnormality. Electronically signed by: Berto Brown DO 09/30/2024 01:[address] [facility] 9 Due to temporary technical issues with the PACS/Jianjian reporting system, reports are being abby d by the in-house radiologist without review as a courtesy to ensure prompt reporting the interpreting radiologist is fully responsible for the content of the report. Transcribed Date/Time: 09/30/2024 2:13 AM
--- NOTE | 2024-09-30 04:28 | EDPHYS ---
Physician Documentation [facility] [place] Name: Shalini Yates Age: 28 yrs Sex: Female : 1995 Arrival Date: 09/30/2024 Time: 00:07 Bed 20 Private MD: ED Physician Ozzy Hampton HPI: 09/30 00:30 This 28 yrs old Female presents to ER via EMS with complaints of seizure . sp4 04:24 28-year-old female presents with acute seizure at home. Patient states that she has sp4 used significant amount of off the street Xanax bars and methamphetamine and that she quit about 4 days ago. Patient presents with moderate to severe headache and report of seizure at home.. 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 It has been more than one year since last vaccine. - Infectious Disease History:: Denies. - Social history:: Smoking status: Patient/guardian denies using tobacco. - Family history:: not pertinent. ROS: 04:24 Constitutional: Negative for fever, chills, and weight loss, positive headache, sp4 positive convulsive seizure 04:24 All other systems are negative, Exam: 04:24 Constitutional: This is a well developed, well nourished patient who is awake, alert, sp4 and in no acute distress. Head/Face: Normocephalic, atraumatic. Eyes: Pupils equal round and reactive to light, extra-ocular motions intact. Lids and lashes normal. Conjunctiva and sclera are not injected. Cornea within normal limits. Periorbital areas with no swelling, redness, or edema. ENT: Nares patent. No nasal discharge, no septal abnormalities noted. Tympanic membranes are normal and external auditory canals are clear. Oropharynx with no redness, swelling, or masses, exudates, or evidence of obstruction, uvula midline. Mucous membranes moist. Neck: Trachea midline, no thyromegaly or masses palpated, and no cervical lymphadenopathy. Supple, full range of motion without nuchal rigidity, or vertebral point tenderness. Chest/axilla: Normal chest wall appearance and motion. Nontender with no deformity. No lesions are appreciated. Cardiovascular: Regular rate and rhythm with a normal S1 and S2. No gallops, murmurs, or rubs. Normal PMI, no JVD. No pulse deficits. Respiratory: Lungs have equal breath sounds bilaterally, clear to auscultation and percussion. No rales, rhonchi or wheezes noted. No increased work of breathing, no retractions or nasal flaring. Abdomen/GI: Soft, with normal bowel sounds. No distension or tympany. No guarding or rebound. No evidence of tenderness throughout. Back: No spinal tenderness. No costovertebral tenderness. Skin: Warm, dry with normal turgor. Normal color with no rashes, no lesions, and no evidence of cellulitis. MS/ Extremity: Pulses equal, no cyanosis. Neurovascular intact. Full, normal range of motion. Neuro: Awake and alert, GCS 15, oriented to person, place, time, and situation. Cranial nerves II-XII grossly intact. Motor strength 5/5 in all extremities. Sensory grossly intact. Psych: Awake, alert, with orientation to person, place and time. Behavior, mood, and affect are within normal limits Vital Signs: 00:15 BP 132 / 92; Pulse 83; Resp 18; Temp 96.4; Pulse Ox 99% on R/A; ay 00:27 BP 132 / 92; Pulse 83; Resp 18; Temp 96.4; Pulse Ox 99% on R/A; ay 01:48 BP 112 / 78; Pulse 81; Resp 18; Pulse Ox 99% on R/A; ay 03:52 BP 105 / 64; Pulse 71; Resp 18; Pulse Ox 95% on R/A; ay 04:40 BP 106 / 67; Pulse 76; Resp 18; Pulse Ox 98% on R/A; ay NIH Stroke Scale Scores: 04:24 NIHSS Score: 0 sp4 [place] Coma Score: 01:31 Eye Response: spontaneous(4). Motor Response: obeys commands(6). Verbal Response: ay oriented(5). Total: 15. 04:24 Eye Response: spontaneous(4). Motor Response: obeys commands(6). Verbal Response: sp4 oriented(5). Total: 15. MDM: 00:31 Medical Screening Exam initiated sp4 04:21 ED course: TECHNIQUE: Axial computed tomography images of the head/brain without sp4 intravenous contrast. Sagittal and coronal reformatted images were created and reviewed. This CT exam was performed using one or more of the following dose reduction techniques: automated exposure control, adjustment of the mA and/or kV according to patient size, and/or use of iterative reconstruction technique. DLP: 827 mGy*cm COMPARISON: CT head without contrast dated 09/21/2024. FINDINGS: BRAIN: Unremarkable. No hemorrhage. No significant white matter disease. No edema. VENTRICLES: Unremarkable. No ventriculomegaly. BONES/JOINTS: Unremarkable. No acute fracture. SOFT TISSUES: Unremarkable. SINUSES: Unremarkable as visualized. No acute sinusitis. MASTOID AIR CELLS: Unremarkable as visualized. No mastoid effusion. IMPRESSION: No acute intracranial abnormality. 04:26 Differential diagnosis: drug overdose, cardiac arrhythmia, seizure, TIA. Data reviewed: sp4 vital signs, nurses notes, EMS record, lab test result(s), radiologic studies, CT scan. Consideration of Admission/Observation Escalation of care including admission/observation considered. ED course: Patient's headache is improved after medications. CT is negative. Patient stable for discharge home. Will advise cessation of recreational substances. Valium as needed for seizures prescribed. 12 00:31 Order name: Acetaminophen; Complete Time: 04:21 sp4 09/30 00:31 Order name: Basic Metabolic Panel; Complete Time: 04:21 sp4 09/30 00:31 Order name: CBC with Diff; Complete Time: 04: sp4 09/30 00:31 Order name: ETOH Level; Complete Time: 04: sp4 09/30 00:31 Order name: Hepatic Function; Complete Time: 04:21 sp4 09/30 00:31 Order name: Test, Urine; Complete Time: 04:21 sp4 09/30 00:31 Order name: Salicylate; Complete Time: 04:21 sp4 09/30 00:31 Order name: Urine Drug Screen; Complete Time: 04:21 sp4 09/30 00:43 Order name: CT Head Brain wo Cont; Complete Time: 04:21 sp4 09/30 00:31 Order name: IV Saline Lock; Complete Time: 01:05 sp4 09/30 00:31 Order name: Labs collected and sent; Complete Time: : sp4 09/30 00:31 Order name: Suicide Screening ([place]); Complete Time: : sp4 Administered Medications: 01:25 Drug: metoCLOPramide IVP 10 mg IVP once; over 1 to 2 minutes Route: IVP; Site: right ay antecubital; 01:36 Follow up: Response: No adverse reaction ay 01:25 Drug: diphenhydrAMINE IVP 25 mg IVP once Route: IVP; Site: right antecubital; ay 01:36 Follow up: Response: No adverse reaction ay 01:26 Drug: NS 0.9% IV 1000 ml IV at 1000 ml once; to be given as a bolus over 60 minutes ay Route: IV; Rate: 1000 ml; Site: right antecubital; 01:37 Follow up: Response: No adverse reaction ay 04:48 Follow up: IV Status: Completed infusion; IV Intake: 1000ml ay 01:26 Drug: Diazepam PO 10 mg PO once Route: PO; ay 01:37 Follow up: Response: No adverse reaction ay 01:26 Drug: Ketorolac IVP 30 mg IVP once Route: IVP; Site: right antecubital; ay 01:36 Follow up: Response: No adverse reaction ay Disposition Summary: 09/30/24 04:28 Discharge Ordered Notes: Location: Home sp4 Problem: new sp4 Symptoms: have improved sp4 Condition: Stable sp4 Diagnosis - Epileptic seizures related to external causes, not intractable sp4 - Acute seizure, methamphetamine use disorder sp4 Followup: sp4 - With: Private Physician - When: 7 - 10 days - Reason: Recheck today's complaints Discharge Instructions: - Discharge Summary Sheet sp4 - Seizure, Adult, [id number] sp4 Forms: - Patient Portal Instructions sp4 Prescriptions: - Valium 5 mg Oral tablet - take 1 tablet ORAL route every 8 hours As needed PRN seizures; 20 tablet; sp4 Refills: 0, Product Selection Permitted NIH Stroke Scale - NIH Stroke Score Date: 09/30/2024 Time: 04:24 Total Score = 0 10. Dysarthria (speech clarity - read or repeat words) - 0(Normal) 11. Extinction and Inattention (visual/tactile/auditory/spatial/personal) - 0(No abnormality) 1a. Level of Consciousness (LOC) - 0(Alert) 1b. Level of Consciousness (LOC) (Month \T\ Age) - 0(Both) 1c. LOC Commands (Open \T\ Closes Eyes/Net Software Engineer) - 0(Both) 2. Best Gaze (Lateral Gaze Paresis) - 0(Normal) 3. Visual Field Loss - 0(No visual loss) 4. Facial Palsy - 0(Normal) 5a. Left Arm: Motor (10-second hold) - 0(No drift) 5b. Right Arm: Motor (10-second hold) - 0(No drift) 6a. Left Leg: Motor (5-second hold - always test supine) - 0(No drift) 6b. Right Leg: Motor (5-second hold - always test supine) - 0(No drift) 7. Limb Ataxia (finger/nose \T\ heel/baum - test with eyes open) - 0(Absent) 8. Sensory Loss (pinprick arms/legs/face) - 0(Normal) 9. Best Language: Aphasia (description/naming/reading) - 0(No aphasia) Initials: sp4 Signatures: Dispatcher [employer] EDMS Ozzy Hampton MD MD sp4 Manolo Velásquez RN RN bm8 Nicole Sutherland, RN RN ay Corrections: (The following items were deleted from the chart) 00:32 00:31 ACETAMINOPHEN+C.LAB.BRZ ordered. EDMS EDMS 00:32 00:31 BASIC METABOLIC PANEL+C.LAB.BRZ ordered. EDMS EDMS 00:32 00:31 CBC+H.LAB.BRZ ordered. EDMS EDMS 00:32 00:31 ETHANOL+C.LAB.BRZ ordered. EDMS EDMS 00:32 00:31 HEPATIC FUNCTION+C.LAB.BRZ ordered. EDMS EDMS 00:32 00:31 Test, Urine+UC.LAB.BRZ ordered. EDMS EDMS 00:32 00:31 SALICYLATE+C.LAB.BRZ ordered. EDMS EDMS 00:32 00:31 URINE DRUG SCREEN+UC.LAB.BRZ ordered. EDMS EDMS 00:44 00:44 Head Brain Wo Cont+CT.RAD.BRZ ordered. EDMS EDMS
--- NOTE | 2024-09-30 04:28 | ER ---
Nurse's Notes [facility] [place] Name: Shalini Yates Age: 28 yrs Sex: Female : 1995 Arrival Date: 09/30/2024 Time: 00:07 Bed 20 Private MD: Diagnosis: Epileptic seizures related to external causes, not intractable;Acute seizure, methamphetamine use disorder Presentation: 09/30 00:15 Chief complaint: Patient states: Pt states that she was woken up from sleep by her ay spouse that she was having a seizure. Pt developed headache after waking up. Coronavirus screen: Client denies travel out of the [place] in the last 14 days. Ebola Screen: No symptoms or risks identified at this time. Initial Sepsis Screen: Does the patient meet any 2 criteria? Temp <36.0*C (96.8*F)) or > 38.3*C (100.9*F). No. Patient's initial sepsis screen is negative. Does the patient have a suspected source of infection? No. Patient's initial sepsis screen is negative. Risk Assessment: Do you want to hurt yourself or someone else? Patient reports no desire to harm self or others. Note Pt BIBA for witnessed seizure that lasted for about 2 minutes during sleep. Per pt, this is her 3rd seizure in 4 days. Pt is alert and oriented x4, no distress noted ATT. VSS. Onset of symptoms was September 30, 2024. 00:15 Method Of Arrival: EMS: [facility] ay 00:15 Acuity: BERNARDA 3 ay 02:02 Risk Assessment: Do you want to hurt yourself or someone else?. bm8 Triage Assessment: 00:27 General: Appears in no apparent distress. comfortable, obese, Behavior is calm, ay cooperative. Pain: Denies pain. EENT: No signs and/or symptoms were reported regarding the EENT system. Neuro: Level of Consciousness is awake, alert, obeys commands, Oriented to person, place, time, situation, Care Assistant are equal bilaterally Speech is normal. Cardiovascular: Denies chest pain, Capillary refill < 3 seconds. Respiratory: Airway is patent Respiratory effort is even, unlabored. GI: Abdomen is obese, Patient currently denies vomiting. : No signs and/or symptoms were reported regarding the genitourinary system. Derm: No signs and/or symptoms reported regarding the dermatologic system. Musculoskeletal: No signs and/or symptoms reported regarding the musculoskeletal system. DESULFURIZER HAND: 01:29 LMP N/A - control method, Not ay Historical: - Allergies: 02:03 Pertussis Vaccines; bm8 - Home Meds: 02:03 None [Active]; bm8 - PMHx: 00:26 Seizure; ay 00:27 ADHD; ay - PSHx: 02:03 tubal ligation; bm8 - Immunization history:: Flu vaccine is not up to date. It has been more than one year since last vaccine. - Infectious Disease History:: Denies. - Social history:: Smoking status: Patient/guardian denies using tobacco. - Family history:: not pertinent. Screenin:[address] [facility] ED Fall Risk Assessment (Adult) History of falling in the last 3 months, ay including since admission No falls in past 3 months (0 pts) Confusion or Disorientation No (0 pts) Intoxicated or Sedated No (0 pts) Impaired Gait No (0 pts) Mobility Assist Device Used No (0 pt) Altered Elimination No (0 pt) Score/Fall Risk Level 0 - 2 = Low Risk Oriented to surroundings, Maintained a safe environment, Educated pt \T\ family on fall prevention, incl call for assistance when getting out of bed, Assessed \T\ reinforced patient's understanding of fall precautions. Abuse screen: Denies threats or abuse. Nutritional screening: No deficits noted. Tuberculosis screening: No symptoms or risk factors identified. Assessment: 01:31 Reassessment: See Triage assessment. ay 03:48 Cardiovascular: Capillary refill < 3 seconds. Respiratory: Airway is patent Respiratory ay effort is even, unlabored. 04:45 Reassessment: Patient appears in no apparent distress at this time. ay Vital Signs: 00:15 BP 132 / 92; Pulse 83; Resp 18; Temp 96.4; Pulse Ox 99% on R/A; ay 00:27 BP 132 / 92; Pulse 83; Resp 18; Temp 96.4; Pulse Ox 99% on R/A; ay 01:48 BP 112 / 78; Pulse 81; Resp 18; Pulse Ox 99% on R/A; ay 03:52 BP 105 / 64; Pulse 71; Resp 18; Pulse Ox 95% on R/A; ay 04:40 BP 106 / 67; Pulse 76; Resp 18; Pulse Ox 98% on R/A; ay [place] Coma Score: 01:31 Eye Response: spontaneous(4). Motor Response: obeys commands(6). Verbal Response: ay oriented(5). Total: 15. 04:24 Eye Response: spontaneous(4). Motor Response: obeys commands(6). Verbal Response: sp4 oriented(5). Total: 15. NIH Stroke Scale Scores: 04:24 NIHSS Score: 0 sp4 ED Course: 00:11 Patient arrived in ED. rv1 00:15 Nicole Sutherland, RN is Primary Nurse. ay 00:26 Triage completed. ay 00:27 Arm band placed on right wrist. ay 00:30 Ozzy Hampton MD is Attending Physician. sp4 01:04 CT Head Brain wo Cont In Process Unspecified. EDMS 01:31 Patient has correct armband on for positive identification. Bed in low position. Call ay light in reach. Side rails up X2. Provided Education on: Procedure Consent. 01:31 No provider procedures requiring assistance completed. Maintain EMS IV. Dressing ay intact. Good blood return noted. Site clean \T\ dry. Gauge \T\ site: 20g RAC. Flushed with 10 mL NS. Patient maintains SpO2 saturation greater than 95% on room air. 01:56 Warm blanket given. ay 04:46 IV discontinued, intact, bleeding controlled, No redness/swelling at site. Pressure ay dressing applied. Administered Medications: 01:25 Drug: metoCLOPramide IVP 10 mg IVP once; over 1 to 2 minutes Route: IVP; Site: right ay antecubital; 01:36 Follow up: Response: No adverse reaction ay 01:25 Drug: diphenhydrAMINE IVP 25 mg IVP once Route: IVP; Site: right antecubital; ay 01:36 Follow up: Response: No adverse reaction ay 01:26 Drug: NS 0.9% IV 1000 ml IV at 1000 ml once; to be given as a bolus over 60 minutes ay Route: IV; Rate: 1000 ml; Site: right antecubital; 01:37 Follow up: Response: No adverse reaction ay 04:48 Follow up: IV Status: Completed infusion; IV Intake: 1000ml ay 01:26 Drug: Diazepam PO 10 mg PO once Route: PO; ay 01:37 Follow up: Response: No adverse reaction ay 01:26 Drug: Ketorolac IVP 30 mg IVP once Route: IVP; Site: right antecubital; ay 01:36 Follow up: Response: No adverse reaction ay Medication: 01:31 VIS not applicable for this client. ay Intake: 04:48 IV: 1000ml; Total: 1000ml. ay Outcome: 04:28 Discharge ordered by . sp4 04:46 Discharged to home ambulatory, ay 04:46 Condition: stable 04:46 Discharge instructions given to patient, Instructed on discharge instructions, follow up and referral plans. Demonstrated understanding of instructions, follow-up care, medications, 04:55 Patient left the ED. ay NIH Stroke Scale - NIH Stroke Score Date: 09/30/2024 Time: 04:24 Total Score = 0 10. Dysarthria (speech clarity - read or repeat words) - 0(Normal) 11. Extinction and Inattention (visual/tactile/auditory/spatial/personal) - 0(No abnormality) 1a. Level of Consciousness (LOC) - 0(Alert) 1b. Level of Consciousness (LOC) (Month \T\ Age) - 0(Both) 1c. LOC Commands (Open \T\ Closes Eyes/Waiter/Waitress Counter) - 0(Both) 2. Best Gaze (Lateral Gaze Paresis) - 0(Normal) 3. Visual Field Loss - 0(No visual loss) 4. Facial Palsy - 0(Normal) 5a. Left Arm: Motor (10-second hold) - 0(No drift) 5b. Right Arm: Motor (10-second hold) - 0(No drift) 6a. Left Leg: Motor (5-second hold - always test supine) - 0(No drift) 6b. Right Leg: Motor (5-second hold - always test supine) - 0(No drift) 7. Limb Ataxia (finger/nose \T\ heel/baum - test with eyes open) - 0(Absent) 8. Sensory Loss (pinprick arms/legs/face) - 0(Normal) 9. Best Language: Aphasia (description/naming/reading) - 0(No aphasia) Initials: sp4 Signatures: Dispatcher [employer] Danielle Quiroz rv1 Ozzy Hampton MD MD sp4 Manolo Velásquez, RN RN bm8 Nicole Sutherland RN RN ay Corrections: (The following items were deleted from the chart) 01:31 00:27 unknown ay ay
[2024-09-30 10:44] VITALS: TEMP 96.4
[2024-09-30 10:52] VITALS: BP 106/67; O2SAT 98
== END 2024-09-30 04:55 | disposition home or self-care (01) ==
LOC: ER 00:07
DX: G40.509 Epileptic seizures related to external causes, not intractable, without status epilepticus (principal); F15.90 Other stimulant use, unspecified, uncomplicated
CPT/HCPCS: 36415; 70450; 80048; 80076; 80143; 80179; 80307; 81025; 82077; 85025; 96361; 96374; 96375; 99284; J1200; J2765; J7030

== ENCOUNTER 2025-08-18 00:27 | Emergency (ER) | payer OTHER ==
--- OUTSIDE RECORDS SUMMARY | 2025-08-18 00:35 | XMS REPORT | Continuity of Care Document ---
Author Name Unknown Address [address] [place] [address] Organization [facility] [place] Address [address] [place] [address] Care Team Providers Care Density Control Puncher Name Role Phone Benedictwu PERSONAL CONSULTANTRohit Vieira Primary Care Physician ETHAN HAN Attending Clinician Unavail able Ethan aHrmon Attending Clinician + SHERRI STRINGER Attending Clinician Unavailable Gaston Britton Attending Clinician Unavailable SANAZ CLOUD Attending Clinician Unavailab SANAZ Lipscomb Attending Clinician Unavailab Sanaz Lipscomb DO Attending Clinician [phone] Sarahi Grove Attending Clinician [phone] SARAHI RAYMUNDO Attending Clinician Unavailab SARAHI Adam Attending Clinician Unavailab ariadna Grant MD, Shola Dunbar Attending Clinician Sherri Catherine Attending Clinician [phone] [facility] Attending Clini luz maria Unavailable [facility] Ethan Patel Attending Clinician + AKUA ELLISON Attending Clinician Unavailable CAROL MARCOS Attending Clinician Unavaila CAROL Underwood Attending Clinician Unavaila tj Doctor Unassigned, [place] Attending Clinician U navailable Pcp, Patient Does Not Have A Attending Clinician ALYCIA MUHAMMAD Attending Clinician Unavaila SLICK Miller Attending Clinician Unavailab ANDREW Silverio Attending Clinician Unavailable Andrew Browning S Attending Clinician [phone] NAOMIE CLOUD Attending Clinician Unavaildelbert Uriostegui RN, Sun Keenan Attending Clinician Unav ailable Patel Carreon DO Attending Clinician [phone] GERI CRUZ Attending Clinician Unavailable [facility], [facility] Attending Clinician Unav ailable Rosalba Freitas Attending Clinician [phone] Slick Newman Attending Clinician [phone] Shola Grant MD Attending Clinician [phone] SHOLA GRANT Attending Clinician Unavailable 1, [facility] Attending Clinician Unavailable Geri Cruz PA-C Attending Clinician [phone] Visit, Adc Nurse Attending Clinician Unavailable Nurse, [facility] Attending Clinician Un available Physician, No Primary or Family Admitting Clinic domingo Unavailable Payers Payer Name Policy Type Policy Number Effective Date Expirati on Date Source [facility] [id number] 2024 00:00:00 [employer] [id number] 2022 00:00:00 Problems Condition Name Condition Details Condition Category Status Onset Date Resolution Date Last Treatment Date Treating Clinician Comments Source Elevated blood pressure reading without diagnosis of hypertensi on Elevated blood pressure reading without diagnosis of hypertensi on Disease Active 12-29 00:00: 00 [facility] Screen for sexually transmitte d diseases Screen for sexually transmitte d diseases Disease Active 1- 00:00: 00 [facility] UTI symptoms UTI symptoms Disease Active 6- 00:00: 00 [facility] Encounter for other general counseling or advice on contracept ion Encounter for other general counseling or advice on contracept ion Disease Active 6- 00:00: 00 [facility] S/P tubal ligation S/P tubal ligation Disease Active 2018-10 029 00:00: 00 [facility] Influenza vaccinatio n declined Influenza vaccinatio n declined Disease Active 2 00:00: 00 [facility] Vaginal odor Vaginal odor Disease Active 2017-10 00:00: 00 [facility] BMI 39.0-39.9, adult BMI 39.0-39.9, adult Disease Resolve d 6 00:00: 00 2024-06-05 00:00:00 2024-06-05 09:48:48 [facility] Multiparit y Multiparit y Disease Resolve d 2 00:00: 00 2021-12-29 00:00:00 2021-12-29 14:41:53 [facility] Oligohydra mnios Oligohydra mnios Disease Resolve d 2018-10 029 00:00: 00 2020-11-17 00:00:00 2020-11-17 11:43:02 [facility] Liveborn , of singh , born in hospital by delivery Liveborn infant, of singh , born in hospital by delivery Disease Resolve d 2018-10 029 00:00: 00 2020-11-17 00:00:00 2020-11-17 11:43:12 [facility] Diet controlled gestationa l diabetes mellitus (GDM) in third trimester Diet controlled gestationa l diabetes mellitus (GDM) in third trimester Disease Resolve d 9-27 00:00: 00 2020-11-17 00:00:00 2020-11-17 11:43:17 [facility] Request for sterilizat ion Request for sterilizat ion Disease Resolve d 9-27 00:00: 00 2020-11-17 00:00:00 2020-11-17 11:42:59 [facility] History of miscarriag e History of miscarriag e Disease Resolve d 3-27 00:00: 00 2020-11-17 00:00:00 2020-11-17 11:43:15 [facility] 38 weeks gestation of 38 weeks gestation of Disease Resolve d 2018-10 0-29 00:00: 00 2019-09-28 00:00:00 2019-09-28 14:16:09 [facility] Breech presentati on on examinatio n, fetus 1 Breech presentati on on examinatio n, fetus 1 Disease Resolve d 9 00:00: 00 2019-09-28 00:00:00 2019-09-28 14:16:07 [facility] Maternal obesity affecting , antepartum Maternal obesity affecting , antepartum Disease Resolve d 9 00:00: 00 2019-09-28 00:00:00 2019-09-28 14:16:02 [facility] Supervisio n of high-risk Supervisio n of high-risk Disease Resolve d 327 00:00: 00 2019-09-28 00:00:00 2019-09-28 14:15:55 [facility] Obesity affecting in first trimester Obesity affecting in first trimester Disease Resolve d 2-27 00:00: 00 2019-09-28 00:00:00 2019-09-28 14:15:48 [facility] Fever Fever Disease Resolve d 2018-10 0-03 00:00: 00 2019-08-25 00:00:00 2019-08-25 10:52:17 [facility] tachycardi a affecting management of mother tachycardi a affecting management of mother Disease Resolve d 2018-10 0-03 00:00: 00 2019-08-25 00:00:00 2019-08-25 10:52:15 [facility] 34 weeks gestation of 34 weeks gestation of Disease Resolve d 07-24 00:00: 00 2019-08-25 00:00:00 2019-08-25 10:52:06 [facility] premature rupture of membranes (PPROM) with onset of labor after 24 hours of rupture in third trimester, antepartum premature rupture of membranes (PPROM) with onset of labor after 24 hours of rupture in third trimester, antepartum Disease Resolve d 07-24 00:00: 00 2019-08-25 00:00:00 2019-08-25 10:52:33 [facility] Screening for venereal disease Screening for venereal disease Disease Resolve d 2017-10 00:00: 00 2018-12-24 00:00:00 2018-12-24 14:57:44 [facility] Screening examinatio n for STD (sexually transmitte d disease) Screening examinatio n for STD (sexually transmitte d disease) Disease Resolve d 04-02 00:00: 00 2018-12-24 00:00:00 2018-12-24 14:57:51 [facility] BMI 28.0-28.9, adult BMI 28.0-28.9, adult Disease Resolve d 04-02 00:00: 00 2018-12-24 00:00:00 2018-12-24 14:57:57 [facility] Tobacco use disorder Tobacco use disorder Disease Resolve d 12-14 00:00: 00 2018-12-24 00:00:00 2018-12-24 14:57:55 [facility] Breakthrou gh bleeding on Nexplanon Breakthrou gh bleeding on Nexplanon Disease Resolve d 2016-10 219 00:00: 00 2018-08-25 00:00:00 2018-08-25 13:26:37 [facility] Nexplanon removal Nexplanon removal Disease Resolve d 04-19 00:00: 00 2018-08-25 00:00:00 2018-08-25 13:25:40 [facility] Chlamydia Chlamydia Disease Resolve d 04-03 00:00: 00 2018-08-25 00:00:2018-08-25 13:25:43 [facility] Nausea and vomiting during prior to 22 weeks gestation Nausea and vomiting during prior to 22 weeks gestation Disease Resolve d 01-02 00:00: 00 2017-04-02 00:00:00 2017-04-02 15:03:23 [facility] Nausea and vomiting during prior to 22 weeks gestation Nausea and vomiting during prior to 22 weeks gestation Disease Resolve d 01-02 00:00: 00 2017-04-02 00:00:00 2017-04-02 15:03:23 [facility] Urinary tract infection without hematuria, site unspecifie d Urinary tract infection without hematuria, site unspecifie d Disease Resolve d 12-21 00:00: 00 2017-04-02 00:00:00 2022-05-13 00:39:39 [facility] Obesity affecting , antepartum , first trimester Obesity affecting , antepartum , first trimester Disease Resolve d 12-14 00:00: 00 2017-04-02 00:00:00 2017-04-02 15:03:21 [facility] Supervisio n of high-risk with insufficie nt care, second trimester Supervisio n of high-risk with insufficie nt care, second trimester Disease Resolve d -17 00:00: 00 2017-04-02 00:00:00 2017-04-02 15:03:19 [facility] Back pain affecting Back pain affecting Disease Resolve d 12-14 00:00: 00 2017-04-02 00:00:00 2017-04-02 15:03:24 [facility] 21 weeks gestation of 21 weeks gestation of Disease Resolve d 0 -08 00:00: 00 2016-01-12 00:00:00 2016-01-12 19:04:10 [facility] Diarrhea Diarrhea Disease Resolve d 3-08 00:00: 00 2016-01-12 00:00:00 2016-01-12 19:10:00 [facility] High risk , antepartum High risk , antepartum Disease Resolve d -17 00:00: 00 2015-12-14 00:00:00 2015-12-14 10:28:20 [facility] Allergies, Adverse Reactions, Alerts Allergy Name Allergy Type Status Severity Reaction(s) Onset Date Inactive Date Treating Clinician Comments Source No Known Allergie s DA Active U 2023-10 00:00: 00 [facility] Pertussi s Vaccines Propensi ty to adverse reaction s to drug Active Anaphylaxis 12-14 00:00: 00 As a child [facility] PERTUSSI S VACCINES Drug Class Active Anaphylaxis 12-14 00:00: 00 [facility] Pertussi s Vaccines Propensi ty to adverse reaction s to drug Active Anaphylaxis 12-14 00:00: 00 As a child [facility] Social History Social Habit Start Date Stop Date Quantity Comments Source ASSERTION Not [facility] History of Occupation [facility] Alcoholic beverage intake 2024-09-02 00:00:00 2024-09-02 00:00:00 Current drinker of alcohol (finding) [facility] Cigarettes smoked current (pack per day) - Reported 2024-06-05 00:00:00 2024-06-05 00:00:[address] [facility] Tobacco use and exposure 2024-06-05 00:00:00 2024-06-05 00:00:00 Smokeless tobacco non-user [facility] History of Social function 2024-06-05 00:00:00 2024-06-05 00:00:[address] [facility] Cigarette pack-years 2024-06-05 00:00:00 2024-06-05 00:00:[address] [facility] Alcohol intake 2023-11-19 00:00:00 2023-11-19 00:00:00 Current drinker of alcohol (finding) [facility] Exposure to SARS-CoV-2 (event) 2023-01-14 00:00:00 2023-01-24 12:38:[address] [facility] History SDOH Alcohol Frequency 2020-11-17 00:00:00 2020-11-17 00:00:[address] [facility] History SDOH Alcohol Std Drinks 2020-11-17 00:00:00 2020-11-17 00:00:[address] [facility] History SDOH Alcohol Binge 2020-11-17 00:00:00 2020-11-17 00:00:[address] [facility] History of tobacco use 2013-12-24 00:00:00 2018-11-25 00:00:[address] [facility] Alcohol Comment 2017-04-02 00:00:00 2017-04-02 00:00:[address] [facility] Sex assigned at 1995 00:00:00 1995 00:00:[address] [facility] Smoking Status Start Date Stop Date Source Smokes tobacco daily 2024-06-05 00:00:[address] [facility] Medications Ordered Medication Name Filled Medication Name Start Date Stop Date Current Medication? Ordering Clinician Indication Dosage Frequency Signature (SIG) Comments Components Source mirtazapine 15 mg tablet 8- 00:00: 00 Yes 1mg [facility] Abilify 10 mg tablet 0 8-11 00:00: 00 Yes 1mg [facility] ramelteon 8 mg tablet 0 8-11 00:00: 00 Yes 1mg [facility] doxepin 6 mg tablet 7-31 00:00: 00 Yes 1mg [facility] mirtazapine 15 mg tablet 0 7-23 00:00: 00 Yes 1mg [facility] Abilify 10 mg tablet 0 7-23 00:00: 00 Yes 1mg [facility] buspirone 5 mg tablet 0 7-23 00:00: 00 Yes 1mg [facility] hydroxyzine HCl 50 mg tablet 0 7-23 00:00: 00 Yes 1mg [facility] phentermine 37.5 mg tablet 5-21 00:00: 00 Yes 1mg [facility] loratadine 10 mg tablet 0 4-17 00:00: 00 Yes 1mg [facility] benzonatate 200 mg capsule 0 4-17 00:00: 00 Yes 1mg [facility] Depakote 250 mg tablet,yariel yed release 2- 00:00: 00 Yes 3mg [facility] clonidine HCl 0.1 mg tablet - 00:00: 00 Yes 1mg [facility] hydroxyzine HCl 25 mg tablet - 00:00: 00 Yes 1mg [facility] Depakote 250 mg tablet,yariel yed release 2- 00:00: 00 Yes 1mg [facility] hydroxyzine HCl 25 mg tablet 2- 00:00: 00 Yes 1mg [facility] trazodone 50 mg tablet 11-30 00:00: 00 Yes 1mg [facility] Depakote 125 mg tablet,yariel yed release - 00:00: 00 Yes 1mg [facility] hydroxyzine HCl 10 mg tablet - 00:00: 00 Yes 1mg [facility] acetaminoph en (TYLENOL) tablet 1,000 mg 2023-10 07:00: 00 09-03 06:47 :00 No 1000mg 1,000 mg, Oral, ONCE, 1 dose, On Sat09/03/24 at 0100, [facility] benzonatate (TESSALON PERLES) capsule 100 mg 2023-10 06:45: 00 09-03 06:44 :00 No 100mg 100 mg, Oral, ONCE, 1 dose, On Sat09/03/24 at 0045, [facility] ondansetron (ZOFRAN-ODT ) disintegrat ing tablet 4 mg 2023-10 06:30: 00 09-03 05:36 :00 No 4mg 4 mg, Oral, ONCE, 1 dose, On Sat09/03/24 at 0030, [facility] codeine-gua ifenesin (ROBITUSSIN AC) 10-100 mg/5 mL oral solution 10 mL 2023-10 05:45: 00 09-03 05:56 :00 No 10mL 10 mL, Oral, ONCE, 1 dose, On Sat09/02/24 at 2345, TARAH [facility] ondansetron 4 mg disintegrat ing tablet 2023-10 00:00: 00 09-03 00:00 :00 No [id number] 4mg Take 1 tablet by mouth every 8 (eight) hours as needed for Nausea and Vomiting (N/V). [facility] benzonatate 100 mg capsule 2023-10 00:00: 00 09-03 00:00 :00 No [id number] 100mg Take 1 capsule by mouth 3 (three) times daily as needed for Cough. [facility] bromphenira mine-pseudo ephedrine-D M (BROMFED DM) 2-30-10 mg/5 mL syrup 2023-10 00:00: 00 09-03 00:00 :00 No [id number] 5mL Take 5 mL by mouth 4 (four) times daily as needed for Cough or Cold symptoms. [facility] metroNIDAZO LE 0.75 % (37.5mg/5 gram) vaginal gel 2023-10 00:00: 00 Yes [id number] 1{appli cator} Insert 1 Applicator into vagina at bedtime. [facility] metroNIDAZO LE 0.75 % (37.5mg/5 gram) vaginal gel 2023-10 0 00:00: 00 08-03 00:00 :00 No [id number] 1{appli cator} Insert 1 Applicator into vagina at bedtime. [facility] metroNIDAZO LE 500 mg tablet 06-05 00:00: 00 07-31 00:00 :00 No [id number] 500mg Take 1 tablet by mouth every 12 (twelve) hours. [facility] metroNIDAZO LE 500 mg tablet 4-12 00:00: 00 06-05 00:00 :00 No [id number] 500mg Take 1 tablet by mouth in the morning and 1 tablet in the evening. [facility] TAKE 1 TABLET BY MOUTH ONCE DAILY FOR 90 DAYS 04-19 00:00: 00 Yes [facility] TAKE 1 TABLET BY MOUTH ONCE DAILY FOR 90 DAYS 04-19 00:00: 00 Yes [facility] TAKE 1 TABLET BY MOUTH EVERY 12 HOURS FOR 7 DAYS 01-24 00:00: 00 Yes [facility] metroNIDAZO LE 500 mg tablet 01-24 00:00: 00 02-01 04:59 :00 No [id number] 500mg Take 1 tablet by mouth every 12 (twelve) hours for 7 days. [facility] metroNIDAZO LE 500 mg tablet 01-01 00:00: 00 02-04 00:00 :00 No [id number] 500mg Take 1 tablet by mouth 2 (two) times daily. [facility] amoxicillin -clavulanat e 875-125 mg per tablet 2020-10 00:00: 00 12-29 00:00 :00 No [id number] 1{tbl} Take 1 tablet by mouth every 12 (twelve) hours. [facility] ondansetron (ZOFRAN ODT) 4 mg disintegrat ing tablet 2020-10 00:00: 00 12-29 00:00 :00 No [id number] 4mg Take 1 tablet by mouth every 8 (eight) hours as needed for Nausea and Vomiting (N/V). [facility] metroNIDAZO LE (FLAGYL) 500 mg tablet 04-26 00:00: 00 12-29 00:00 :00 No [id number] 500mg Take 1 tablet by mouth 2 (two) times daily. [facility] Immunizations Ordered Immunization Name Filled Immunization Name Date Status Comments Source TD, NOS 2024-07-16 00:00:[address] [facility] Influenza Virus Vaccine Quad .5 mL IM 6+ MO (FLUZONE/FLULAVAL/FLU ARIX) 2024-07-16 00:00:[address] [facility] DT/Tetanus 2024-07-16 00:00:[address] [facility] DTaP, Unspecified Formulation 2024-07-16 00:00:[address] [facility] DPT/HIB 2024-07-16 00:00:[address] [facility] HEPATITIS A 2024-07-16 00:00:[address] [facility] Hep B, Adol or Pedi Dosage 2024-07-16 00:00:[address] [facility] Haemophilus influenzae type b vaccine, conjugate unspecified formulation 2024-07-16 00:00:[address] [facility] Meningococcal Polysaccharide (groups A, C, Y and W-135) conjugate vaccine (MCV4P) 2024-07-16 00:00:[address] [facility] MMR 2024-07-16 00:00:[address] [facility] IPV 2024-07-16 00:00:[address] [facility] Poliovirus, Live, Oral, Trivalent 2024-07-16 00:00:[address] [facility] Tetanus/Diptheria 2024-07-16 00:00:[address] [facility] HPV9 2024-07-16 00:00:[address] [facility] DT/Tetanus 2024-06-05 09:15:[address] [facility] Hep B, Adol or Pedi Dosage 2024-06-05 09:15:[address] [facility] Haemophilus influenzae type b vaccine, conjugate unspecified formulation 2024-06-05 09:15:[address] [facility] MMR 2024-06-05 09:15:[address] [facility] Poliovirus, Live, Oral, Trivalent 2024-06-05 09:15:[address] [facility] DTaP, Unspecified Formulation 2024-05-21 00:00:[address] [facility] TD, NOS 2024-02-07 00:00:[address] [facility] Influenza Virus Vaccine Quad .5 mL IM 6+ MO (FLUZONE/FLULAVAL/FLU ARIX) 2024-02-07 00:00:[address] [facility] DTaP, Unspecified Formulation 2024-02-07 00:00:[address] [facility] DPT/HIB 2024-02-07 00:00:[address] [facility] HEPATITIS A 2024-02-07 00:00:[address] [facility] Meningococcal Polysaccharide (groups A, C, Y and W-135) conjugate vaccine (MCV4P) 2024-02-07 00:00:[address] [facility] IPV 2024-02-07 00:00:[address] [facility] Tetanus/Diptheria 2024-02-07 00:00:[address] [facility] HPV9 2024-02-07 00:00:[address] [facility] DT/Tetanus 2024-02-07 00:00:[address] [facility] Hep B, Adol or Pedi Dosage 2024-02-07 00:00:[address] [facility] Haemophilus influenzae type b vaccine, conjugate unspecified formulation 2024-02-07 00:00:[address] [facility] MMR 2024-02-07 00:00:[address] [facility] Poliovirus, Live, Oral, Trivalent 2024-02-07 00:00:[address] [facility] TD, NOS 2024-02-05 14:00:[address] [facility] Influenza Virus Vaccine Quad .5 mL IM 6+ MO (FLUZONE/FLULAVAL/FLU ARIX) 2024-02-05 14:00:[address] [facility] DTaP, Unspecified Formulation 2024-02-05 14:00:[address] [facility] DPT/HIB 2024-02-05 14:00:[address] [facility] HEPATITIS A 2024-02-05 14:00:[address] [facility] Meningococcal Polysaccharide (groups A, C, Y and W-135) conjugate vaccine (MCV4P) 2024-02-05 14:00:[address] [facility] IPV 2024-02-05 14:00:[address] [facility] Tetanus/Diptheria 2024-02-05 14:00:[address] [facility] HPV9 2024-02-05 14:00:[address] [facility] DT/Tetanus 2024-02-05 14:00:[address] [facility] Hep B, Adol or Pedi Dosage 2024-02-05 14:00:[address] [facility] Haemophilus influenzae type b vaccine, conjugate unspecified formulation 2024-02-05 14:00:[address] [facility] MMR 2024-02-05 14:00:[address] [facility] Poliovirus, Live, Oral, Trivalent 2024-02-05 14:00:[address] [facility] TD, NOS 2024-01-28 00:00:[address] [facility] Influenza Virus Vaccine Quad .5 mL IM 6+ MO (FLUZONE/FLULAVAL/FLU ARIX) 2024-01-28 00:00:[address] [facility] DT/Tetanus 2024-01-28 00:00:[address] [facility] DTaP, Unspecified Formulation 2024-01-28 00:00:[address] [facility] DPT/HIB 2024-01-28 00:00:[address] [facility] HEPATITIS A 2024-01-28 00:00:[address] [facility] Hep B, Adol or Pedi Dosage 2024-01-28 00:00:[address] [facility] Haemophilus influenzae type b vaccine, conjugate unspecified formulation 2024-01-28 00:00:[address] [facility] Meningococcal Polysaccharide (groups A, C, Y and W-135) conjugate vaccine (MCV4P) 2024-01-28 00:00:[address] [facility] MMR 2024-01-28 00:00:[address] [facility] IPV 2024-01-28 00:00:[address] [facility] Poliovirus, Live, Oral, Trivalent 2024-01-28 00:00:[address] [facility] Tetanus/Diptheria 2024-01-28 00:00:[address] [facility] TD, NOS 2023-06-18 00:00:[address] [facility] Influenza Virus Vaccine Quad .5 mL IM 6+ MO (FLUZONE/FLULAVAL/FLU ARIX) 2023-06-18 00:00:[address] [facility] Influenza Virus Vaccine Quad .5 mL IM 6+ MO 2019-02-23 00:00:[address] [facility] Influenza Virus Vaccine Quad .5 mL IM 6+ MO 2019-02-23 00:00:[address] [facility] Influenza Virus Vaccine Quad .5 mL IM 6+ MO 2019-02-23 00:00:[address] [facility] Influenza Virus Vaccine Quad .5 mL IM 6+ MO 2019-02-23 00:00:[address] [facility] Td 2012-06-24 00:00:[address] [facility] TD, NOS 2012-06-24 00:00:[address] [facility] TD, NOS 2012-06-24 00:00:[address] [facility] TD, NOS 2012-06-24 00:00:[address] [facility] [facility] DT/Tetanus 2001-02-10 00:00:00 Completed DT/Tetanus 2000-11-19 00:00:00 Completed MMR 1998-04-19 00:00:00 Completed Haemophilus influenzae type b vaccine, conjugate unspecified formulation 1997-07-20 00:00:00 Completed Poliovirus, Live, Oral, Trivalent 1997-04-12 00:00:00 Completed Hep B, Adol or Pedi Dosage 1997-01-12 00:00:00 Completed Poliovirus, Live, Oral, Trivalent 1997-01-12 00:00:00 Completed Vital Signs Vital Name Observation Time Observation Value Comments S ource Systolic blood pressure 2025-03-18 13:25:00 130 mm[Hg] [facility] Diastolic blood pressure 2025-03-18 13:25:00 80 mm[Hg] [facility] Heart rate 2025-03-18 13:16:00 90 /[facility] Body temperature 2025-03-18 13:16:[address] [facility] Respiratory rate 2025-03-18 13:16:00 18 /min [facility] Body height 2025-03-18 13:16:00 152.4 cm [facility] Body weight 2025-03-18 13:16:00 89.994 kg [facility] BMI 2025-03-18 13:16:00 38.75 kg/m2 [facility] Systolic blood pressure 2024-09-03 06:43:00 123 mm[Hg] [facility] Diastolic blood pressure 2024-09-03 06:43:00 75 mm[Hg] [facility] Heart rate 2024-09-03 06:43:00 124 /min [facility] Body temperature 2024-09-03 06:43:[address] [facility] Respiratory rate 2024-09-03 06:43:00 22 /min [facility] Oxygen saturation in Arterial blood by Pulse oximetry 2024-09-03 06:43:00 95 /min [facility] Body height 2024-09-03 05:30:00 152.4 cm [facility] Body weight 2024-09-03 05:30:00 88.905 kg [facility] BMI 2024-09-03 05:30:00 38.28 kg/m2 [facility] Systolic blood pressure 2024-07-31 15:15:00 128 mm[Hg] [facility] Diastolic blood pressure 2024-07-31 15:15:00 82 mm[Hg] [facility] Heart rate 2024-07-31 15:15:00 99 /min [facility] Body temperature 2024-07-31 15:15:[address] [facility] Respiratory rate 2024-07-31 15:15:00 16 /min [facility] Body height 2024-07-31 15:15:00 154.9 cm [facility] Body weight 2024-07-31 15:15:00 88.769 kg [facility] BMI 2024-07-31 15:15:00 36.98 kg/m2 [facility] Systolic blood pressure 2024-06-05 14:21:00 134 mm[Hg] [facility] Diastolic blood pressure 2024-06-05 14:21:00 84 mm[Hg] [facility] Heart rate 2024-06-05 14:21:00 90 /min [facility] Body temperature 2024-06-05 14:21:[address] [facility] Respiratory rate 2024-06-05 14:21:00 17 /min [facility] Body height 2024-06-05 14:21:00 154.9 cm [facility] Body weight 2024-06-05 14:21:00 87.59 kg [facility] BMI 2024-06-05 14:21:00 36.49 kg/m2 [facility] Systolic blood pressure 2024-02-05 19:02:00 140 mm[Hg] [facility] Diastolic blood pressure 2024-02-05 19:02:00 90 mm[Hg] [facility] Heart rate 2024-02-05 19:02:00 80 /min [facility] Body temperature 2024-02-05 19:02:[address] [facility] Respiratory rate 2024-02-05 19:02:00 18 /min [facility] Body height 2024-02-05 19:02:00 154.9 cm [facility] Body weight 2024-02-05 19:02:00 86.637 kg [facility] BMI 2024-02-05 19:02:00 36.09 kg/m2 [facility] Systolic blood pressure 2023-01-24 17:58:00 129 mm[Hg] [facility] Diastolic blood pressure 2023-01-24 17:58:00 87 mm[Hg] [facility] Heart rate 2023-01-24 17:58:00 84 /min [facility] Respiratory rate 2023-01-24 17:58:00 16 /min [facility] Body height 2023-01-24 17:58:00 154.9 cm [facility] Body weight 2023-01-24 17:58:00 94.666 kg [facility] BMI 2023-01-24 17:58:00 39.43 kg/m2 [facility] Oxygen saturation in Arterial blood by Pulse oximetry 2023-01-24 17:58:00 97 /min [facility] Systolic blood pressure 2021-12-29 20:20:00 140 mm[Hg] [facility] Diastolic blood pressure 2021-12-29 20:20:00 85 mm[Hg] [facility] Heart rate 2021-12-29 20:20:00 93 /min [facility] Body temperature 2021-12-29 20:20:[address] [facility] Respiratory rate 2021-12-29 20:20:00 18 /min [facility] Body height 2021-12-29 20:20:00 154.9 cm [facility] Body weight 2021-12-29 20:20:00 89.444 kg [facility] BMI 2021-12-29 20:20:00 37.26 kg/m2 [facility] BP Systolic 2025-03-17 09:53:00 122 mm[Hg] Step hen F [facility]hem[facility] BP Diastolic 2025-03-17 09:53:00 84 mm[Hg] Dante phen F [facility] Weight Measured 2025-03-17 09:53:00 198.00 pounds Froylan F [facility] Height Measured 2025-03-17 09:53:00 60.83 inches Froylan F [facility] Body Temperature 2025-03-17 09:53:00 97.50 degrees Froylan F [facility] Heart Rate 2025-03-17 09:53:00 88.00 /min Blanca en F Nehemias Respiratory Rate 2025-03-17 09:53:00 18.00 /min Froylan F [facility] BP Systolic 2019-02-11 14:13:00 118 mm[Hg] Step hen F [facility] BP Diastolic 2019-02-11 14:13:00 82 mm[Hg] Dante phen F [facility] Weight Measured 2019-02-11 14:13:00 169.00 pounds Froylan F [facility] Height Measured 2019-02-11 14:13:00 60.63 inches Froylan F [facility] Body Temperature 2019-02-11 14:13:00 98.80 degrees Froylan F [facility] Heart Rate 2019-02-11 14:13:00 80.00 /min Blanca en F [facility] Respiratory Rate 2019-02-11 14:13:00 17.00 /min Froylan F [facility] Procedures Procedure Date / Time Performed Performing Clinicia n Source INFLUENZA A/B RSV COVID NAAT 2024-09-03 05:36:[address] [facility] HIV 1/2 AG-AB WITH REFLEX 2024-02-05 19:51:[address] [facility] SYPHILIS IGG/IGM 2024-02-05 19:51:[address] [facility] GARDASIL 9 (HPV 9V) VACCINE 2024-02-05 19:24:[address] [facility] ASSIGNMENT OF BENEFITS 2023-01-24 17:40:23 Docto r Unassigned, Hallett [facility] GC & CHLAMYDIA AMPLIFIED ASSAY 2021-12-29 21:29:[address] [facility] GALV ONLY - VAGINAL PATHOGENS BY NUCLEIC ACID TESTING 2021-12-29 21:29:[address] [facility] PAP SMEAR-LIQUID BASED-CP 2021-12-29 21:29:[address] [facility] HIV 1/2 AG-AB WITH REFLEX 2021-12-29 21:05:[address] [facility] GALV ONLY - SYPHILIS IGG/IGM 2021-12-29 21:05:[address] [facility] Encounters Start Date/Time End Date/Time Encounter Type Admission Type Attending [facility] Care Facility Care Department Encounter ID Source 2025-08-03 16:40:31 2025-08-03 16:40:31 Outpatient [facility] [id number] Froylan Del Cid 2025-06-19 14:47:04 2025-06-19 14:47:04 Outpatient [facility] [id number] Froylan Figueroa Nehemias 2025-06-19 00:00:00 2025-06-19 00:00:00 Outpatient Visit [facility] [id number] Froylan Figueroa Nehemias 2025-06-07 11:12:26 2025-06-07 11:12:26 Outpatient [facility] [id number] Froylan Figueroa Nehemias 2025-05-17 16:27:54 2025-05-17 16:27:54 Outpatient [facility] [id number] Froylan Figueroa Nehemias 2025-05-13 10:32:12 2025-05-13 10:32:12 Outpatient [facility] [id number] Froylan Del Cid 2025-04-01 08:45:00 2025-04-01 08:45:00 Outpatient Robby THOMASETHAN MELO [facility] [id number] [facility] 2025-03-18 08:00:00 2025-03-18 08:42:43 Office Visit Robby Han Ethan C [facility] [employer] [facility]ERNAL & [facility]ILD [facility] 1.2.840.114 350.1.13.10 4.2.7.2.686 [id number] [facility] 2025-03-17 09:45:50 2025-03-17 09:45:50 Outpatient [facility] [id number] Froylan Del Cid 2025-03-17 00:00:00 2025-03-17 00:00:00 Outpatient Visit [facility] [id number] Froylan Del Cid 2025-03-03 13:45:00 2025-03-03 13:45:00 Outpatient R GUILLEETHAN [facility] [id number] [facility] 2025-02-11 00:00:00 2025-02-11 00:00:00 Outpatient Visit [facility] [id number] Froylan Del Cid 2025-01-20 14:45:00 2025-01-20 14:45:00 Outpatient SHERRI CALVO [facility] [id number] [facility] 2025-01-20 14:45:00 2025-01-20 14:45:00 Outpatient SHERRI CALVO [facility] [id number] [facility] 2024-09-21 21:48:00 2024-09-22 01:25:00 Emergency EM Gaston Britton BEAU [id number] [address] [place] [address] 2024-09-02 23:35:00 2024-09-03 00:55:00 Emergency SANAZ GIVENS SANDRA [facility] ERT [id number] [facility] 2024-09-02 23:35:00 2024-09-03 00:55:00 Emergency Sanaz Cloud [facility] 1..114 350.1.13.10 4.2.7.2.686 [id number] [facility] 2024-08-13 14:30:00 2024-08-13 14:30:00 Outpatient R [facility] [id number] [facility] 2024-07-31 00:00:00 2024-08-04 15:53:20 Telephone Sarahi Raymundo [facility] [employer] [facility] MATERNAL & [facility]ILD [facility] 1.84.114 350.1.13.10 4.2.7.2.686 [id number] [facility] 2024-08-03 00:00:00 2024-08-03 07:05:22 [facility] 1..114 350.1.13.10 4.2.7.2.686 [id number] [facility] 2024-07-31 10:15:00 2024-07-31 10:49:23 Outpatient R [facility] [id number] [facility] 2024-07-31 10:15:00 2024-07-31 10:49:23 Office Visit Mykel Raymundohany [facility] [employer] [facility] MATERNAL & CHILD [facility] 1..114 350.1.13.10 4.2.7.2.686 [id number] [facility] 2024-07-16 00:00:00 2024-07-17 14:03:56 Telephone Shola Grant [facility] 1..114 350.1.13.10 4.2.7.2.686 [id number] [facility] 2024-06-12 10:30:00 2024-06-12 10:30:00 Outpatient R [facility] [id number] [facility] 2024-06-05 09:15:00 2024-06-05 09:50:51 Outpatient R SHERRI STRINGER [facility] [id number] [facility] 2024-06-05 09:15:00 2024-06-05 09:50:51 Office Visit ThomasSherri [facility] [employer] [facility] & CHILD [facility] 1..840.114 350.1.13.10 4.2.7.2.686 [id number] [facility] 2024-06-04 13:30:00 2024-06-04 13:30:00 Outpatient R [facility] [id number] [facility] 2024-05-21 00:00:00 2024-05-21 09:43:30 Letter (Out) Nurse, Norman Rmchp Rgv Cprit Obgyn [facility] [employer] [facility] & CHILD [facility] 1..840.114 350.1.13.10 4.2.7.2.686 [id number] [facility] 2024-04-09 16:15:00 2024-04-09 16:15:00 Outpatient R [facility] [id number] [facility] 2024-03-17 14:30:00 2024-03-17 14:30:00 Outpatient R ETHAN HAN [facility] [id number] [facility] 2024-03-12 14:30:00 2024-03-12 14:30:00 Outpatient R [facility] [id number] [facility] 2024-02-07 00:00:00 2024-02-07 00:00:00 Telephone Ethan Han [facility] [employer] [facility] & CHILD [facility] 1.840.114 350.1.13.10 4.2.7.2.686 [id number] [facility] 2024-02-05 14:00:00 2024-02-05 14:51:20 Outpatient R ETHAN HAN [facility] [id number] [facility] 2024-02-05 14:00:00 2024-02-05 14:51:20 Office Visit Ethan Han [facility] [employer] [facility] MATERNAL & [facility]ILD [facility] 1..840.114 350.1.13.10 4.2.7.2.686 [id number] [facility] 2024-01-29 10:00:00 2024-01-29 10:00:00 Outpatient R AKUA ELLISON [facility] [id number] [facility] 2024-01-28 13:00:00 2024-01-28 13:00:00 Outpatient R CAROL MARCOS CHERYAL [facility] [id number] [facility] 2024-01-28 00:00:00 2024-01-28 00:00:00 Patient Secure Msg Doctor Unassigned, Hallett [facility] 1.84.114 350.1.13.10 4.2.7.2.686 [id number] [facility] 2023-06-18 00:00:00 2023-06-18 00:00:00 Patient Secure Msg Pcp, Patient Does Not Have A [facility] 1..114 350.1.13.10 4.2.7.2.686 [id number] [facility] 2023-03-11 13:30:00 2023-03-11 13:30:00 Outpatient R CAROL MARCOS CHERYAL [facility] [id number] [facility] 2023-03-06 13:15:00 2023-03-06 13:15:00 Outpatient R ALYCIA MUHAMMAD [facility] [id number] [facility] 2023-02-28 13:45:00 2023-02-28 13:45:00 Outpatient R HUICAROL COLUNGAWILLIANKEANU BRISEYDASANJUANITA [facility] [id number] [facility] 2023-01-24 13:00:00 2023-01-24 13:16:08 Outpatient R HEMANT BRISEYDASANJUANITA HEMANT BRISEYDASANJUANITA [facility] [id number] [facility] 2023-01-24 13:00:00 2023-01-24 13:16:08 Office Visit Carol Marcos [facility] 1.840.114 350.1.13.10 4.2.7.2.686 [id number] [facility] 2023-01-24 00:00:00 2023-01-24 00:00:00 Orders Only Doctor Unassigned, Hallett [facility] 1.840.114 350.1.13.10 4.2.7.2.686 [id number] [facility] 2023-01-21 00:00:00 2023-01-21 00:00:00 Telephone Ethan Han [facility] [employer] [facility] 1.840.114 350.1.13.10 4.2.7.2.686 [id number] [facility] 2022-09-03 10:45:00 2022-09-03 10:45:00 Outpatient ALYCIA BANDA [facility] [id number] [facility] 2022-03-15 10:30:00 2022-03-15 10:30:00 Outpatient SLICK BOYCE [facility] [id number] [facility] 2022-01-01 00:00:00 2022-01-01 00:00:00 Telephone Ethan Han [facility] [employer] [facility] & CHILD [facility] 1..840.114 350.1.13.10 4.2.7.2.686 [id number] [facility] 2021-12-29 14:15:00 2021-12-29 15:04:41 Office Visit Ethan Han [facility] [employer] [facility] & CHILD [facility] 1..840.114 350.1.13.10 4.2.7.2.686 [id number] [facility] 2021-12-29 14:15:00 2021-12-29 15:04:41 Outpatient R ETHAN HAN [facility] [id number] [facility] 2021-12-29 14:15:00 2021-12-29 14:15:00 Outpatient R ETHAN HAN [facility] [id number] [facility] 2021-12-28 15:15:00 2021-12-28 15:15:00 Outpatient R ETHAN HAN [facility] [id number] [facility] 2021-10-24 01:46:00 2021-10-24 02:53:00 Emergency X ANDREW QURESHI [facility] ERT [id number] [facility] 2021-10-24 01:46:00 2021-10-24 02:53:00 Emergency Andrew Qureshi [facility] ..840.114 350.1.13.10 4.2.7.2.686 [id number] [facility] 2021-09-25 15:45:00 2021-09-25 15:45:00 Outpatient R NAOMIE CLOUD [facility] [id number] [facility] 2021-08-23 00:00:00 2021-08-23 00:00:00 Telephone Ethan Han [facility] [employer] [facility] & CHILD [facility] 1.84.114 350.1.13.10 4.2.7.2.686 [id number] [facility] 2021-06-13 00:00:00 2021-06-13 00:00:00 Telephone Sun Uriostegui Kyaw Tovar 1.84.114 350.1.13.10 4.2.7.2.686 [id number] [facility] 2021-04-26 00:00:00 2021-04-26 00:00:00 Telephone Ethan Han [facility] [employer] [facility] & CHILD [facility] 1.84.114 350.1.13.10 4.2.7.2.686 [id number] [facility] 2021-04-25 14:50:03 2021-04-25 16:09:42 Office Visit Ethan Han [facility] [employer]IST [facility] 1.840.114 350.1.13.10 4.2.7.2.686 [id number] [facility] 2021-04-25 14:45:00 2021-04-25 14:45:00 Outpatient ETHAN SEPULVEDA [facility] [id number] [facility] 2021-04-25 00:00:00 2021-04-25 00:00:00 Orders Only Doctor Unassigned, Hallett [facility] 1..114 350.1.13.10 4.2.7.2.686 [id number] [facility] 2021-04-17 16:00:00 2021-04-17 16:00:00 Outpatient SLICK BOYCE [facility] [id number] [facility] 2021-01-17 00:00:00 2021-01-17 00:00:00 Patient Outreach Patel Carreon [facility] 1..114 350.1.13.10 4.2.7.2.686 [id number] [facility] 2020-11-21 00:00:00 2020-11-21 00:00:00 Telephone Ethan Han Amanda [facility] [employer] [facility]ILD [facility] 1.0.114 350.1.13.10 4.2.7.2.686 [id number] [facility] 2020-11-17 11:03:31 2020-11-17 11:48:59 Office Visit Guille Ethan Patel [facility] [employer]IST [facility] 1..114 350.1.13.10 4.2.7.2.686 [id number] [facility] 2020-11-17 10:45:00 2020-11-17 10:45:00 Outpatient R ETHAN HAN [facility] [id number] [facility] 2020-10-26 14:45:00 2020-10-26 14:45:00 Outpatient R ETHAN HAN [facility] [id number] [facility] 2020-05-02 14:00:00 2020-05-02 14:00:00 Outpatient R GERI CRUZ [facility] [id number] [facility] 2020-04-20 00:00:00 2020-04-20 00:00:00 Patient Secure Msg Doctor Unassigned, Hallett [facility] 1.114 350.1.13.10 4.2.7.2.686 [id number] [facility] 2020-04-19 10:26:53 2020-04-19 10:46:53 Urgent Care Pob1, Acute Care Clinic Rosalba Chavis [facility] 1.114 350.1.13.10 4.2.7.2.686 [id number] [facility] 2020-04-19 10:20:00 2020-04-19 10:20:00 Outpatient R [facility] [id number] [facility] 2020-03-31 00:00:00 2020-03-31 00:00:00 Telephone Rudolph Bajwakristy R [facility] [employer]IST [facility]ERNAL & [facility]ILD [facility] 1.2840.114 350.1.13.10 4.2.7.2.686 [id number] [facility] 2020-03-29 15:45:00 2020-03-29 15:45:00 Outpatient R ETHAN HAN [facility] [id number] [facility] 2020-01-19 00:00:00 2020-01-19 00:00:00 Telephone Shola Grant [facility] 1.2840.114 350.1.13.10 4.2.7.2.686 [id number] [facility] 2019-11-20 00:00:00 2019-11-20 00:00:00 Telephone Shola Grant [facility] 1.2.840.114 350.1.13.10 4.2.7.2.686 [id number] [facility] 2019-11-13 00:00:00 2019-11-13 00:00:00 Telephone Shola Grant [facility] 1.2.840.114 350.1.13.10 4.2.7.2.686 [id number] [facility] 2019-11-13 00:00:00 2019-11-13 00:00:00 Orders Only Doctor Unassigned, Hallett [facility] 1.2840.114 350.1.13.10 4.2.7.2.686 [id number] [facility] 2019-09-28 00:00:00 2019-09-28 00:00:00 Orders Only Doctor Unassigned, Hallett [facility] 1.2.840.114 350.1.13.10 4.2.7.2.686 [id number] [facility] 2019-08-03 11:30:00 2019-08-03 11:58:24 Outpatient R SHOLA GRANT [facility] [id number] [facility] 2019-07-16 15:38:10 2019-07-16 16:39:50 Routine Visit Shola Grant [facility] 1.2.840.114 350.1.13.10 4.2.7.2.686 [id number] [facility] 2019-07-09 00:00:00 2019-07-09 00:00:00 Telephone Shola Grant [facility] 1.2.840.114 350.1.13.10 4.2.7.2.686 [id number] [facility] 2019-07-06 00:00:00 2019-07-06 00:00:00 Refill Shola Grant [facility] 1.2.840.114 350.1.13.10 4.2.7.2.686 [id number] [facility] 2019-07-02 17:22:06 2019-07-02 17:37:06 Family Nurse Practitioner Visit 1, Adc Lab Shola Grant [facility] 1.2.840.114 350.1.13.10 4.2.7.2.686 [id number] [facility] 2019-07-02 16:34:25 2019-07-02 17:06:37 Routine Visit Geri Cruz [facility] 1.2.840.114 350.1.13.10 4.2.7.2.686 [id number] [facility] 2019-06-26 11:49:51 2019-06-26 12:02:16 Nurse Visit Visit, [facility] Nurse Shola Grant [facility] 1.2.840.114 350.1.13.10 4.2.7.2.686 [id number] [facility] 2019-06-26 10:47:20 2019-06-26 11:30:48 Nurse Visit Nurse, [facility] Shola Grant [facility] 1.2.840.114 350.1.13.10 4.2.7.2.686 [id number] [facility] 2019-06-26 00:00:00 2019-06-26 00:00:00 [facility] 1.2.840.114 350.1.13.10 4.2.7.2.686 [id number] [facility] 2019-06-26 00:00:00 2019-06-26 00:00:00 Orders Only Doctor Unassigned, [place] [facility] 1.2.840.114 350.1.13.10 4.2.7.2.686 [id number] [facility] 2019-06-24 09:26:07 2019-06-24 09:41:07 Family Nurse Practitioner Visit 1, [facility] 1.2.840.114 350.1.13.10 4.2.7.2.686 [id number] [facility] 2019-06-24 00:00:00 2019-06-24 00:00:00 Orders Only Doctor Unassigned, [place] [facility] 1.2.840.114 350.1.13.10 4.2.7.2.686 [id number] [facility] 2019-06-24 00:00:00 2019-06-24 00:00:00 Telephone Shola Grant [facility] 1.2.840.114 350.1.13.10 4.2.7.2.686 [id number] 134 [id number] [facility] 2019-06-19 00:00:00 2019-06-19 00:00:00 Case Management Geri Cruz [facility] 1.2.840.114 350.1.13.10 4.2.7.2.686 [id number] [facility] 2019-06-18 14:30:02 2019-06-18 14:45:02 Family Nurse Practitioner Visit 1, [facility] Shola Grant [facility] 1.2.840.114 350.1.13.10 4.2.7.2.686 [id number] [facility] 2019-06-18 00:00:00 2019-06-18 00:00:00 Orders Only Doctor Unassigned, [place] [facility] [id number] [facility] 2019-06-11 15:59:47 2019-06-11 16:59:57 Routine Visit Shola Grant Nancy [facility] [id number] [facility] Results Test Description Test Time Test Comments Results Result Co mments Source Froylan Del CidCOMPREHENSIVE METABOLIC [id number] 00:00:00* Test Item Value Reference Range Interpretation Comme nts GLUCOSE (test code = 2345-7) 130 mg/dL UREA NITROGEN (BUN) (test code = 3094-0) 9 mg/dL CREATININE (test code = 2160-0) 0.50 mg/dL EGFR (test code = 18278-8) 131 mL/min/1.73m2 BUN/CREATININE RATIO (test code = 3097-3) SEE NOTE: (calc) SODIUM (test code = 2951-2) 139 mmol/L POTASSIUM (test code = 2823-3) 4.3 mmol/L CHLORIDE (test code = 2075-0) 104 mmol/L CARBON DIOXIDE (test code = 8-9) 27 mmol/L CALCIUM (test code = 32224-1) 9.6 mg/dL PROTEIN, TOTAL (test code = 2885-2) 7.4 g/dL ALBUMIN (test code = 1751-7) 4.7 g/dL GLOBULIN (test code = 89533-8) 2.7 g/dL(calc) ALBUMIN/GLOBULIN RATIO (test code = 1759-0) 1.7 (calc) BILIRUBIN, TOTAL (test code = 1975-2) 0.3 mg/dL ALKALINE PHOSPHATASE (test code = 6768-6) 70 U/L AST (test code = 1920-8) 23 U/L ALT (test code = 1742-6) 35 U/L Froylan Del CidLIPID [id number] 00:00:00* Test Item Value Reference Range Interpretation Comme nts CHOLESTEROL, TOTAL (test cod e = 2093-3) 250 mg/dL HDL CHOLESTEROL (test code = 2085-9) 38 mg/dL TRIGLYCERIDES (test code = 2571-8) 821 mg/dL CHOL/HDLC RATIO (test code = 9830-1) 6.6 (calc) NON HDL CHOLESTEROL (test code = 43494-1) 212 mg/dL(calc) Froylan Del [id number] 00:00:00* Test Item Value Reference Range Interpretation Comme nts TSH (test code = 3016-3) 1.87 mIU/L Froylan Del CidSyphilis [id number] 15:39:01* Test Item Value Reference Range Interpretation Comme nts Syphilis IgG/IgM (test code = 07363-2) Non-reactive Non-reactive LINDSAY (test code = LINDSAY) Non-reactive - No serologic evidence of T. pallidum infection. Cannot exclude incubating or early syphilis. Submit a second specimen in 2-4 weeks if syphilis is clinically suspected. Equivocal - Further testing to follow. Reactive - Further testing to follow. Lab Interpretation (test code = 37445-7) Normal [facility]/[id number] 15:39:01* Test Item Value Reference Range Interpretation Comme nts Syphilis IgG/IgM (test code = 65921-4) Non-reactive Non-reactive LINDSAY (test code = LINDSAY) Non-reactive - No serologic evidence of T. pallidum infection. Cannot exclude incubating or early syphilis. Submit a second specimen in 2-4 weeks if syphilis is clinically suspected. Equivocal - Further testing to follow. Reactive - Further testing to follow. Lab Interpretation (test code = 82679-5) Normal [facility] 1/2 Ag-Ab with [id number] 05:05:07* Test Item Value Reference Range Interpretation Comme nts HIV Semi-quantitative (test code = 52513-8) 0.11 Negative LINDSAY (test code = LINDSAY) Non-reactive for HIV-1 antigen and HIV-1/HIV-2 antibodies. ?No laboratory evidence of HIV infection. ?Repeat in 2-4 weeks if acute HIV infection is suspected. [facility] 1/2 Ag-Ab with [id number] 05:05:07* Test Item Value Reference Range Interpretation Comme nts HIV Semi-quantitative (test code = 81531-5) 0.11 Negative LINDSAY (test code = LINDSAY) Non-reactive for HIV-1 antigen and HIV-1/HIV-2 antibodies. ?No laboratory evidence of HIV infection. ?Repeat in 2-4 weeks if acute HIV infection is suspected. [facility] ONLY - SYPHILIS [id number]/[id number] 14:51:07* Test Item Value Reference Range Interpretation Comme nts Syphilis IgG/IgM (test code = 80110-0) Non-reactive Non-reactive LINDSAY (test code = LINDSAY) Non-reactive - No serologic evidence of T. pallidum infection. Cannot exclude incubating or early syphilis. Submit a second specimen in 2-4 weeks if syphilis is clinically suspected. Equivocal - Further testing to follow. Reactive - Further testing to follow. Lab Interpretation (test code = 67930-7) Normal [facility] 1/2 AG-AB WITH [id number] 06:58:37* Test Item Value Reference Range Interpretation Comme nts HIV Semi-quantitative (test code = 35175-9) Negative Negative LINDSAY (test code = LINDSAY) Non-reactive for HIV-1 antigen and HIV-1/HIV-2 antibodies. ?No laboratory evidence of HIV infection. ?Repeat in 2-4 weeks if acute HIV infection is suspected. [facility] Notes Date/Time Note Provider Source Froylan Del Cid [facility]2025-05-21 00:00:00 Froylan Jones [facility]2025-04-17 00:00:00 Froylan Jones [facility]2024-11-26 00:33:00 [facility] ([facility]) EMERGENCY PROVIDER REPORT REPORT#:[id number] REPORT STATUS: Signed DATE:09/22/24 TIME: 32 PATIENT: JERRI CARTER UNIT #: [id number] ROOM/BED: : 96 AGE: 28 SEX: F PCP PHYS: No Primary or Family Physician SERVICE AUTHOR: Gaston Britton MD LOCATION: [facility] REP V REP SRV TM: 0033 * ALL edits [...] General Confirmed Patient Yes Initial Greet Date/Time 09/21/24 2200 Presentation Chief Complaint fall, right leg pain [...] 2241 Report Impression - Status: SIGNED Entered: 09/21/20242333 IMPRESSION: Negative exam. Impression By: Franklin Raines [...] STA 09/21 2234 DC 09/21 Tromethamine IV 09/21 Skin And Mucous Membrane Agent Sig/Ramiro Start time Last Medication Dose Route Stop Time Status Admin Lidocaine 1 PATCH X1ED STA 09/21 2234 DC 09/21 TOPICAL 09/21 Patient Discharge Departure Vital Signs/Condition Vital Signs [...] 78 09/22 125 Resp 18 09/22 125 All vital signs available at the time of this entry have been reviewed. Condition Stable Clinical Impression Clinical Impression Primary Impression: Seizure-like activity Secondary Impressions: At risk for polypharmacy, Leg pain Time of Impression 32 Disposition Decision Discharge )( Discharged to Home Yes )( Time 32 )( Date 09/22/24 Discharge/Care Plan Counseled Regarding Diagnosis, Imaging studies, Prescriptions, Need for follow- up, When to return to ED (Auto) Prescriptions Current Visit Scripts NAPROXEN (NAPROSYN) 500 MG PO BID PRN PRN PAIN NAPROXEN (NAPROSYN) 500 MG PO BID PRN PRN PAIN #15 TABS LIDOCAINE (LIDODERM 5%) 1 PATCH TRANSDERM DAILY LIDOCAINE (LIDODERM 5%) 1 PATCH TRANSDERM DAILY #12 PATCHES Departure Forms [facility] PCP LIST at 0416 [facility] #:[id number] END OF [id number] 00:54:04 Awake, alert oriented X4, respiratory even [...] ambulated to the lobby with steady gait. AL SERVICES ASSISTANT Carolyn Ng [facility]kdxiy7883-82-92 23:29:38 Pt presents to ED with cough, n/v/d for 2 days. 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 Recommend she is tutm-hgs-rwiqatj cough and cold medications as needed for [...] (three) times daily as needed for Cough. ERAEYAESSWENCBN-LAIBABCNFYPKDSW-ZK (BROMFED DM) 2-30-10 MG/5 ML SYRUP Take [...] signed by: Sanaz Cloud DO 09/03/24 0039 [facility]2024-10-08 15:52:57 Medication was sent to [facility] 08/03/24. Maryann Medina RN 08/04/2024 3:53 PM Maryann Rodriguez [facility]Hgoeld6799-06-87 12:45:55 Jerri Carter is a 28 year old female Pt is requesting for her prescription to be sent to a different pharmacy due to pharmacy being out of stock. [facility] [address] [place] [address] Ph: [phone] Geraldine ReynagaMelissa Ville 988544-09-20 14:02:[address] Grant- she does not offer reversal. Pt wanted to see what type of tubal was done. Instructed her to call medical records to have it sent or she may ask specialist to request visit from 07/2019. Verbalized understanding. CLAUDIA RODRIGEZ RN 07/17/2024 2:03 PM Claudia Rodrigez [facility]tkasp8050-60-80 10:43:07 Speaking with provider. CLAUDIA RODRIGEZ RN 07/17/2024 10:43 AM [facility]Yikkur2139-94-57 08:49:33 The patient inquired about the possibility of reversing the tubal ligation and mentioned that Dr. Grant performed the procedure. Kellee [facility]ellD[facility] HospitalIajsrd9579-04-57 13:52:07 Pt notified medication sent to pharmacy, verbalized understanding. T [facility]bleXzjglo4118-08-60 13:44:18 Please notify the patient her labs are indicative of BV, meds have been sent to her pharmacy on file. Please have her complete the entire course as prescribed. BENJI Regalado 02/07/2024 1:44 PM [facility]2024-04-12 09:09:47 Patient seen positive results for BV and informed will route to provider for new orders, verbalized understanding. [facility]2024-04-12 09:02:05 Copied from [facility] #[id number]. Topic: Clinical - Medical Advice >> Feb 07, 2024 9:00 AM Patient Visual Merchandising Manager wrote: Patient requesting results review from labs taken 02/05/24 Please contact pt at [phone] (home) Claudia Keenan [facility]
[2025-08-18] MEDS ORDERED: LORAZEPAM 1 MG TABLET ONE (01:17)
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
--- NOTE | 2025-08-18 05:06 | EDPHYS ---
Physician Documentation [facility] [place] Name: Shalini Yates Age: 29 yrs Sex: Female : 1995 Arrival Date: 08/18/2025 Time: 00:27 Bed 16 Private MD: ED Physician Ozzy Hampton HPI: 08/18 00:55 This 29 yrs old Other Race Female presents to ER via Ambulatory with complaints of sp4 Probable Seizure. 02:17 29-year-old female presents with acute onset stress anxiety and possible seizure. sp4 Patient states 3 hours ago prior to arrival she was talking to her friend that she follows up for a few seconds. Patient is concerned about having possibly seizures. Past medical history includes ADHD seizure anxiety and methamphetamine abuse on daily basis takes propranolol 10 mg, hydroxyzine and Remeron.. 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 - Infectious Disease History:: Denies. - Social history:: Smoking status: Patient reports the use of cigarette tobacco products, smokes one-half pack cigarettes per day. - Family history:: not pertinent. ROS: 02:18 Constitutional: Negative for fever, chills, and weight loss, sp4 02:18 Psych: Positive for acute stress, anxiety, and acute near syncope 02:18 All other systems are negative, Exam: 02:26 Constitutional: This is a well developed, well nourished patient who is awake, alert, sp4 and in no acute distress. Head/Face: Normocephalic, atraumatic. Eyes: Pupils equal round and reactive to light, extra-ocular motions intact. Lids and lashes normal. Conjunctiva and sclera are not injected. Cornea within normal limits. Periorbital areas with no swelling, redness, or edema. ENT: Nares patent. No nasal discharge, no septal abnormalities noted. Tympanic membranes are normal and external auditory canals are clear. Oropharynx with no redness, swelling, or masses, exudates, or evidence of obstruction, uvula midline. Mucous membranes moist. Neck: Trachea midline, no thyromegaly or masses palpated, and no cervical lymphadenopathy. Supple, full range of motion without nuchal rigidity, or vertebral point tenderness. Chest/axilla: Normal chest wall appearance and motion. Nontender with no deformity. No lesions are appreciated. Cardiovascular: Regular rate and rhythm with a normal S1 and S2. No gallops, murmurs, or rubs. No pulse deficits. Respiratory: Lungs have equal breath sounds bilaterally, clear to auscultation and percussion. No rales, rhonchi or wheezes noted. No increased work of breathing, no retractions or nasal flaring. Abdomen/GI: Soft, with normal bowel sounds. No distension or tympany. No guarding or rebound. No evidence of tenderness throughout. Back: No spinal tenderness. No costovertebral tenderness. Skin: Warm, dry with normal turgor. Normal color with no rashes, no lesions, and no evidence of cellulitis. MS/ Extremity: Pulses equal, no cyanosis. Neurovascular intact. Full, normal range of motion. Neuro: Awake and alert, GCS 15, oriented to person, place, time, and situation. Cranial nerves II-XII grossly intact. Motor strength 5/5 in all extremities. Sensory grossly intact. Psych: Awake, alert, with orientation to person, place and time. Behavior, mood, and affect are within normal limits 02:26 ECG was reviewed by the Attending Physician. EKG at 0 117 there EKG is normal sinus rhythm rate 98, overall normal EKG. Vital Signs: 00:47 BP 133 / 94; Pulse 113; Resp 20; Temp 98.1(O); Pulse Ox 98% on R/A; Weight 83.91 kg; nh2 Height 5 ft. 0 in. ; 01:22 BP 125 / 94; Pulse 98; Resp 16; Pulse Ox 99% ; kt5 02:16 BP 123 / 90; Pulse 104; Resp 20; Pulse Ox 99% on R/A; kd3 00:47 Body Mass Index 36.13 (83.91 kg, 152.4 cm) nh2 Joey Coma Score: 00:51 Eye Response: spontaneous(4). Motor Response: obeys commands(6). Verbal Response: nh2 oriented(5). Total: 15. MDM: 01:07 Medical Screening Exam initiated sp4 03:06 Data reviewed: vital signs, nurses notes. ED course: Patient tested positive for sp4 amphetamines , positive for mild elevation of WBC otherwise unremarkable labs. Patient states she is feeling improved. Likely source is acute anxiety attack secondary to psychosocial stressors.. 08/18 00:57 Order name: Basic Metabolic Panel sp4 08/18 00:57 Order name: CBC with Diff sp4 08/18 00:57 Order name: LFT's sp4 08/18 00:57 Order name: Test, Serum sp4 08/18 00:57 Order name: Urine Drug Screen sp4 08/18 01:00 Order name: CK sp4 08/18 01:07 Order name: EKG; Complete Time: 08:14 sp4 08/18 00:57 Order name: IV Saline Lock; Complete Time: 01:06 sp4 08/18 00:57 Order name: Labs collected and sent; Complete Time: :06 sp4 08/18 00:57 Order name: O2 Per Protocol; Complete Time: 01:06 sp4 08/18 00:57 Order name: O2 Sat Monitoring; Complete Time: 01:06 sp4 EC:17 Rate is 98 beats/min. Rhythm is regular, Normal Sinus Rhythm. QRS [place] is Normal. [place] sp4 interval is normal. QRS interval is normal. QT interval is normal. No Q waves. T waves are Normal. No ST changes noted. Clinical impression: Normal ECG and No evidence of ischemia. Interpreted by me. Reviewed by me. Administered Medications: 01:21 Drug: LORazepam PO 2 mg PO once Route: PO; kt5 02:00 Follow up: Response: No adverse reaction; RASS: Alert and Calm (0) nh2 Disposition Summary: 08/18/25 03:07 Discharge Ordered Notes: Location: Home sp4 Problem: new sp4 Symptoms: have improved sp4 Condition: Stable sp4 Diagnosis - Anxiety disorder, unspecified sp4 - Acute stress reaction, Acute anxiety attack sp4 Followup: sp4 - With: Private Physician - When: 7 - 10 days - Reason: Recheck today's complaints Discharge Instructions: - Discharge Summary Sheet sp4 - Managing Anxiety, Adult sp4 Forms: - Patient Portal Instructions sp4 Prescriptions: - Valium 5 mg Oral tablet - take 1 tablet ORAL route daily As needed PRN anxiety attack; 12 tablet; sp4 Refills: 0, Product Selection Permitted Signatures: Dispatcher MedOndeego Ozzy Felton MD MD sp4 Marck Perez Jr, RN RN nh2 Maida Teran, RN RN kt5
[2025-08-18 08:42] LABS: Absolute Lymphocytes (CBC) 2.0 K/uL (0.7-4.9); Hematocrit 44.5 % (36.0-45.0); Hemoglobin 15.2 g/dL (12.0-15.0); MCH 28.5 pg (27.0-35.0); MCHC 34.1 g/dL (32.0-36.0); MCV 83.5 fL (80-100); MPV 7.7 fL (7.6-11.3); Nucleated RBC Absolute Count 0.0 (0-0); Nucleated Red Blood Cells % 0.2 % (0-0); RBC Red Blood Cell Count 5.32 M/uL (3.86-4.86); White Blood Count 14.60 thou/uL (4.3-10.9)
[2025-08-18 09:50] VITALS: TEMP 98.1
[2025-08-18 09:55] VITALS: O2SAT 99
[2025-08-18 09:56] VITALS: BP 123/90
[2025-08-18 09:58] LABS: METHAMPHETAM POSITIVE (NEGATIVE); THC Cannibis NEGATIVE (NEGATIVE)
[2025-08-18 10:10] LABS: ALT/SGPT 42.0 U/L (13-56); AST/SGOT 17.0 U/L (15-37); Albumin 4.2 g/dL (3.4-5.0); Albumin/Globulin Ratio 1.1 (1.1-1.8); Alkaline Phosphatase 62.0 U/L (45-117); Anion Gap 8.6 mEq/L (5.0-15.0); BUN Blood Urea Nitrogen 7.0 mg/dL (7-18); Bilirubin Indirect, Calculated 0.4 mg/dL (0.2-0.8); Globulin 3.9 g/dL (2.3-3.5); Glucose Level 125.0 mg/dL (74-106); Potassium 3.6 mEq/L (3.5-5.1)
== END 2025-08-18 03:18 | disposition home or self-care (01) ==
LOC: ER 00:27
DX: F41.9 Anxiety disorder, unspecified (principal); F43.0 Acute stress reaction; F15.90 Other stimulant use, unspecified, uncomplicated; D72.829 Elevated white blood cell count, unspecified
CPT/HCPCS: 36415; 80048; 80076; 80307; 82550; 84703; 85025; 93005; 99284